=== PATIENT | female | born 1975 | race Caucasian/White ===

== ENCOUNTER 2021-07-21 13:17 | Emergency (ER) | payer BC, SELFPAY ==
[2021-07-21 13:22] VITALS: BP 129/86; PULSE 98; RESP 20; TEMP 36.6; O2SAT 99
--- NOTE | 2021-07-21 14:41 | ED.GENADULT ---
HPI - General Adult General Chief complaint: Unspecified Stated complaint: I think I have strep Time Seen by Provider: 07/21/21 13:39 Source: patient Mode of arrival: ambulatory Limitations: no limitations History of Present Illness HPI narrative: This is a 46 year old female that presents to the ER for cold symptoms x 3 days. Reports cough, congestion, sore throat and ear pain. She is not flu or COVID vaccinated. Denies fever. Related Data Allergies Allergy/AdvReac Type Severity Reaction Status Date / Time codeine Allergy Severe Loss of Verified 07/21/21 13:38 Consciousness diazepam Allergy Mild Unknown Verified 07/21/21 13:38 Sulfa (Sulfonamide Allergy Mild Hives / Verified 07/21/21 13:38 Antibiotics) Red Face adhesive tape Allergy Unknown Rash Verified 07/21/21 13:38 Review of Systems Review of Systems: CONSTITUTIONAL: Denies fever ENT: Reports rhinorrhea, congestion, sore throat, and otalgia. RESPIRATORY: Reports cough. Denies dyspnea. All systems reviewed & are unremarkable except as noted in HPI and below PMFSH Past Medical History Medical History (Updated 07/21/21 @ 14:47 by Mattie Ross PA-C) History of migraine Social History Social History (Updated 07/21/21 @ 14:45 by Mattie Ross PA-C) Smoking status: Current every day smoker Exam Narrative: GENERAL: Well-appearing, well-nourished, and in no acute distress. HEAD: Normocephalic, atraumatic. EYES: EOMI. ENT: Nares clear, no rhinorrhea or epistaxis. Mucous membranes moist. Oropharynx with symmetric tonsillar erythema and hypertrophy, no exudate or other lesions. Uvula midline. No trismus. Bilateral TMs pearly wells non-bulging NECK: Supple. No adenopathy or masses. CHEST: Clear to auscultation. No respiratory distress. No wheezes rales or rhonchi HEART: Regular rate and rhythm. No murmur heard. Normal peripheral pulses. EXTREMITIES: Normal range of motion. No edema. SKIN: Warm, dry, no rash. NEURO: No focal deficits. Alert and oriented x3. PSYCH: Normal mood and affect Course Vital Signs Vital signs: Vital Signs Temperature 97.8 F 07/21/21 13:22 Pulse Rate 98 07/21/21 13:22 Respiratory Rate 20 07/21/21 13:22 Blood Pressure 129/86 07/21/21 13:22 Pulse Oximetry 99 07/21/21 13:22 Temperature 97.8 F 07/21/21 13:22 Pulse Rate 98 07/21/21 13:22 Respiratory Rate 20 07/21/21 13:22 Blood Pressure 129/86 07/21/21 13:22 Pulse Oximetry 99 07/21/21 13:22 Medical Decision Making MDM Narrative Medical decision making narrative: Patient presents to the emergency department for cold symptoms present over the last couple of days. She is afebrile and nontoxic-appearing. Bilateral, symmetric tonsillar hypertrophy noted. Uvula is midline. No trismus. Lungs are clear on exam. Influenza and strep screens are negative. Patient was instructed on continued care of viral infection. SARS-CoV-2 was sent. She is to follow-up with primary care doctor. She was given warnings to return to the ER Vital Signs Vital Signs: Vital Signs Temperature 97.8 F 07/21/21 13:22 Pulse Rate 98 07/21/21 13:22 Respiratory Rate 20 07/21/21 13:22 Blood Pressure 129/86 07/21/21 13:22 Pulse Oximetry 99 07/21/21 13:22 Temperature 97.8 F 07/21/21 13:22 Pulse Rate 98 07/21/21 13:22 Respiratory Rate 20 07/21/21 13:22 Blood Pressure 129/86 07/21/21 13:22 Pulse Oximetry 99 07/21/21 13:22 Lab Data Lab results reviewed: Yes I reviewed the patient's lab results. Labs: Lab Results 07/21/21 Range/Units 13:59 SARS-CoV-2 RNA (RT-PCR) Pending Influenza A Screen Negative Reference Range: Negative Influenza B Screen Negative Reference Range: Negative Strep Screen Presumptive Negative *(Reference Range: Negative)*
[2021-07-23 13:42] LABS: SARS-CoV-2 RNA PCR Negative
== END 2021-07-21 15:29 | disposition home or self-care (01) ==
PROVIDERS: Physician Assistant; Emergency Provider Emergency Medicine
DX: J06.9 Acute upper respiratory infection, unspecified (principal); F17.200 Nicotine dependence, unspecified, uncomplicated; Z20.822 Contact with and (suspected) exposure to COVID-19
CPT/HCPCS: 87081; 87804; 87880; 99283; C9803; U0003; U0005

== ENCOUNTER 2022-04-15 14:24 | Outpatient (CLI) | payer BC, SELFPAY ==
--- NOTE | 2022-04-15 14:30 | ECG_ITS ---
Measurements Intervals [place] Rate: 70 P: 29 W[place]: 157 QRS: -30 QRSD: 97 T: 19 QT: 376 QTc: 408 Interpretive Statements SINUS RHYTHM DELAYED PRECORDIAL R/S TRANSITION LEFT VENTRICULAR HYPERTROPHY MINIMAL Q WAVES- HIGH LATERAL LEADS BASELINE ARTIFACT- I, II, III, AVR, AVL, AVF BORDERLINE ECG NO PREVIOUS ECG AVAILABLE FOR COMPARISON Electronically Signed On 04-15-2022 15:54:53 CDT by Toni Messina D.O.
[2022-04-15 15:11] LABS: Basophils Absolute Auto 0.1 K/mm3 (0.0-0.1); Basophils Percent Auto 1.4 % (0.2-1.2); Eosinophils Absolute Auto 0.3 K/mm3 (0-0.3); Eosinophils Percent Auto 3.6 % (0-4.4); Hematocrit 45.2 % (37.0-47.0); Hemoglobin 14.4 g/dL (12.0-15.0); Immature Granulocyte Absolute 0.03 K/mm3 (0.00-0.031); Immature Granulocyte Percent A 0.3 % (0-0.5); Lymphocytes Absolute Auto 2.51 K/mm3 (0.9-3.2); Lymphocytes Percent Auto 28.9 % (18.3-44.2); Mean Corpuscular HGB Conc 31.9 g/dl (32-36); Mean Corpuscular Hemoglobin 29.9 pg (26-34); Mean Platelet Volume 9.2 fl (7.4-10.4); Monocytes Absolute Auto 0.8 K/mm3 (0.1-0.6); Monocytes Percent Auto 9.5 % (2.6-8.5); Neutrophils Absolute Auto 4.9 K/mm3 (1.3-6.7); Neutrophils Percent Auto 56.3 % (45.5-73.1); Platelet Count Result 405 k/mm3 (150-375); Red Blood Count 4.81 M/mm3 (4.2-5.4); Red Cell Distribution Width 12.9 % (11.5-14.5); White Blood Count 8.7 K/mm3 (4.5-10.0)
== END 2022-04-15 14:25 | disposition home or self-care (01) ==
LOC: ANHSURGERY 14:40
PROVIDERS: PCP Nurse Practitioner; Visit Provider Obstetrics & Gynecology
DX: Z01.818 Encounter for other preprocedural examination (principal); N81.4 Uterovaginal prolapse, unspecified; F17.200 Nicotine dependence, unspecified, uncomplicated
CPT/HCPCS: 36415; 85025; 86850; 86900; 86901; 93005

== ENCOUNTER 2022-04-19 00:44 | Day surgery (SDC) | payer BC, SELFPAY ==
[2022-04-11 14:27] VITALS: BMI 33.8
--- NOTE | 2022-04-11 14:35 | PC.NURSE ---
Report to the Outpatient Waiting Room, entrance under the green pavilion located off [facility], at time ___07:30AM____ on date ___[id number]____. OR Time: ___09:30AM . Time changes happen often and if your time is changed the preop area will call you the afternoon before. - You and your visitor will be asked to self-screen and do not enter if you have any COVID symptoms. - Only one visitor and NO children visitors are allowed at this time. - The patient visitor is requested to leave or wait in car when not with patient due to restrictions. - A mask is required within the hospital. Patients may have clear liquids (water, carbonated beverages, clear teas, apple juice) until 3 hours prior to surgery with a maximum of 20 ounces. - No food from midnight until time of surgery - NOTHING TO DRINK AFTER 06:30AM Take the following medications with a SIP of water the morning of surgery: N/A Medications to discontinue per physician SUPPLEMENTS Date to take last nshb 9-40-59 Please no make-up, nail irish, hairspray, perfume, deodorant, or body powder the day of surgery. No jewelry (including any body piercings) or valuables the day of surgery, leave them at home. Please take a shower or bath the night before, or the morning of, surgery with an antibacterial soap. Wear comfortable, loose fitting clothing. - Jewelry must be removed prior to entering the operating room. Rings and piercings that are not removed may be cut off. - The hospital will not accept responsibility for valuables. - Please leave all valuables, including medications, at home the day of surgery. If you are going home after surgery, a licensed electric truck driver must drive you home. - NO public transportation without another adult. - We recommend that an adult stay with you for 24 hours following discharge. - We also recommend that you do not drive, make important decision, drink alcoholic beverages, or take any drugs that were not prescribed by your health care provider for at least 24 hours after your discharge time. Follow any additional instructions given to you from your surgeon. If you or anyone in your household have experienced Covid symptoms in the past week, please notify your surgeon or the nurse liaison at the phone number below for possible testing. Telephone instructions given to ___PATIENT and asked if any additional questions and then verbalized understanding. Patient advised to call surgeon office or pre surgery nurse liaison [phone] if any additional questions.
--- NOTE | 2022-04-16 14:56 | PM.IMHP ---
H&P: HPI History of Present Illness Date/Time: 04/16/22 14:56 Chief Complaint: Pelvic pain and uterine prolapse Narrative: This is a 46-year-old female who has pain discomfort dysmenorrhea and pain with intercourse. She has a second-degree prolapse and she would like to have it definitively PICC fixed. She has cyclic migraines and would like to have the ovaries out. We did discuss the psychologic and physiologic changes that occur with that and will proceed with hormone replacement as needed. Risks and benefits of this procedure were reviewed including but not exclusive of , aspiration pneumonia, bleeding, transfusion, perforation injury to bowel, bladder, ureters, or other internal organs with the need for open laparotomy. The risk of thromboembolic event was also reviewed. She had all questions answered and asked to proceed PMFSH Past Medical History Medical History History of migraine Social History Social History Smoking packs per day: 1 Smoking cigarettes per day: 20.0 Years smoked: 34 Smoking pack-years: 34.00 Smoking status: Current every day smoker Tobacco type: cigarettes Second hand tobacco smoke exposure: No Alcohol use details: SPECIAL OCCASIONS Substance use: never Substance use type: does not use Spiritual care concerns: No Meds Home Medications and Allergies Home Medications Medication Instructions Recorded Confirmed Type black cohosh 540 mg capsule 1,080 mg PO DAILY 04/11/22 04/11/22 History loratadine 10 mg tablet (Claritin) 10 mg PO DAILY 04/11/22 04/11/22 History red clover leaf extract 500 mg 1,600 mg PO DAILY 04/11/22 04/11/22 History tablet tizanidine 4 mg tablet 8 mg PO BID 04/11/22 04/11/22 History topiramate 50 mg tablet 50 mg PO DAILY 04/11/22 04/11/22 History trazodone 50 mg tablet 50 mg PO HS 04/11/22 04/11/22 History fremanezumab-vfrm 225 mg/1.5 mL 225 mg subcut 04/15/22 History subcutaneous auto-injector (Ajovy) Allergies Allergy/AdvReac Type Severity Reaction Status Date / Time codeine Allergy Severe Loss of Verified 04/11/22 14:18 Consciousness banana Allergy Intermediate Headache Verified 04/11/22 14:20 milk Allergy Intermediate Headache Verified 04/11/22 14:20 diazepam Allergy Mild Hives Verified 04/11/22 14:18 Sulfa (Sulfonamide Allergy Mild Hives / Verified 04/11/22 14:18 Antibiotics) Red Face adhesive tape Allergy Unknown Rash Verified 04/11/22 14:18 BRAXTON PEPPERS Allergy Severe Anaphylaxis Uncoded 04/11/22 14:20 Exam Const: General: cooperative, healthy appearing and comfortable Nutritional Appearance: average body habitus Orientation/consciousness: oriented to person, oriented to place and oriented to time Chest: Chest palpation & inspection: normal inspection of the chest Resp: Effort & Inspection: normal respiratory effort Cardio: Rate: regular rate Rhythm: regular rhythm GI: Inspection: normal to inspection : External Female Exam: normal external appearance Speculum Exam - Vagina: normal appearance of the vagina Speculum Exam - Cervix: normal appearance of the cervix Bimanual exam- vagina & uterus: Cervical tenderness present and enlarged Bimanual Exam- Adnexa, other: normal adnexae Assessment and Plan Assessment and plan (1) Pelvic pain: Code(s): R10.2 - Pelvic and perineal pain Status: Acute (2) Uterine prolapse: Code(s): N81.4 - Uterovaginal prolapse, unspecified Status: Acute Plan Robotic total vaginal hysterectomy and bilateral salpingo-oophorectomy
--- NOTE | 2022-04-18 15:41 | P.PNAN_ITS ---
Anes - Initial Pre Proc Eval Procedure: Operation Date: 04/19/22 09:30 Proposed Procedures p Robotic Assisted Total Vaginal Hysterectomy with Bilateral Salpingo- Oophorectomy - Alonso Bruno MD Date/Time: 04/18/22 15:41 Surgeon: Alonso Bruno MD Pre Op Diagnosis: Pelvic Pain, Uterine Prolapse Patient Data Age: 47 Gender: F Height: 1.57 m Weight: 84 kg Allergies Allergy/AdvReac Type Severity Reaction Status Date / Time codeine Allergy Severe Loss of Verified 04/19/22 08:05 Consciousness banana Allergy Intermediate Headache Verified 04/19/22 08:05 diazepam Allergy Intermediate Hives Verified 04/19/22 08:05 milk Allergy Intermediate Headache Verified 04/19/22 08:05 Sulfa (Sulfonamide Allergy Mild Hives / Verified 04/19/22 08:05 Antibiotics) Red Face adhesive tape Allergy Unknown Rash Verified 04/19/22 08:05 BRAXTON PEPPERS Allergy Severe Anaphylaxis Uncoded 04/19/22 08:05 Home Medications Medication Instructions Recorded Confirmed Type black cohosh 540 mg capsule 1,080 mg PO DAILY 04/11/22 04/19/22 History loratadine 10 mg tablet (Claritin) 10 mg PO DAILY 04/11/22 04/11/22 History red clover leaf extract 500 mg 1,600 mg PO DAILY 04/11/22 04/19/22 History tablet tizanidine 4 mg tablet 8 mg PO BID 04/11/22 04/19/22 History topiramate 50 mg tablet 50 mg PO DAILY 04/11/22 04/19/22 History trazodone 50 mg tablet 50 mg PO HS 04/11/22 04/19/22 History fremanezumab-vfrm 225 mg/1.5 mL 225 mg subcut MONTHLY 04/15/22 04/19/22 History subcutaneous auto-injector (Ajovy) loratadine 10 mg tablet (Claritin) 10 mg PO DAILY 04/19/22 04/19/22 History Patient hx anesthesia problems: none Family hx anesthesia problems: none Results Review: All pre-operative results and documents have been reviewed as part of the pre- operative evaluation. FOR[facility]LY [facility], [facility] Past Medical History Medical History (Updated 04/18/22 @ 15:42 by Mic Rajan MD) Asthma Cervical ca History of migraine Obesity Social History Social History Smoking packs per day: 1 Smoking cigarettes per day: 20.0 Years smoked: 34 Smoking pack-years: 34.00 Smoking status: Current every day smoker Tobacco type: cigarettes Second hand tobacco smoke exposure: No Alcohol use details: SPECIAL OCCASIONS Substance use: never Substance use type: does not use Living arrangements: with family Spiritual care concerns: No Anes - Eval Final PreProcedure Day of Procedure 04/18/22 15:41 Patient weight: obese Heart: regular rate and rhythm Lungs: clear to auscultation and normal air movement Airway: Mallampati scale class II Neurological: alert and oriented Last oral intake: >/= 8 hours ASA classification: III Emergent: no Anesthetic plan: proceed Anesthesia type and monitoring: general GIVS Results Review: All pre-operative results and documents have been reviewed as part of the pre- operative evaluation. Informed Consent: The patient's anesthetic plan and its attendant risks and benefits were discusse d with the patient/family/POA. Questions were solicited and answers provided to the satisfaction of the patient/family/POA.
[2022-04-19] VITALS (10 sets, daily range): BP systolic 109–133; BP diastolic 54–79; PULSE 60–96; RESP 12–18; TEMP 36.4–37.1; O2SAT 95–100
--- NOTE | 2022-04-19 06:23 | WPDHPUPDATE1 ---
History and Physical Update Update Date/Time: 04/19/22 06:23 History and Physical has been reviewed, including an updated exam of the patient. There are NO changes in the patient's condition. Risks, benefits, and alternatives have been discussed and questions answered. Patient agrees to proceed with procedure.
[2022-04-19] MEDS: ACETAMINOPHEN 500 MG TABLET 1000 MG PO (08:11)
[2022-04-19] MEDS: LACTATED RINGERS 1,000 ML 30 ML IV CONT ×2 (08:27→11:04)
[2022-04-19] MEDS: KETOROLAC 15 MG/ML VIAL (*BKC) IV PUSH (08:28)
--- NOTE | 2022-04-19 10:52 | W.PM.PROC2 ---
Procedure Note - Detailed Date of Procedure 04/19/22 Pre-op Diagnosis Pelvic Pain, Uterine Prolapse Post-op Diagnosis Same Procedure Performed robotic total vaginal hysterectomy and bilateral salpingo-oophorectomy Surgeon Alonso Bruno MD Anesthesia General Indications this 47-year-old female with pelvic pain and recurrent migraine headaches Findings normal-appearing uterus and ovaries. rightfallopian tube was surgically absent. Description of Procedure Patient was prepped draped in normal sterile fashion placed in the dorsal lithotomy position. Under excellent general trach anesthesia weighted speculum placed in posterior fornix vagina. Anterior lip grasped with the single-tooth tenaculum. Uterus sounded to 8cm. Serial dilatation with fragmented dilators performed followed by passes of the 8. HAFSA and the 3. 0.5 cold cup. All the weighted speculum was removed and the bladder emptied of clear urine with a 16 Setswana catheter. The instruments were were removed and gloves were changed. A supraumbilical incision made the Veress needle passed in the abdomen. Abdomen filled with CO2 gas to 15mm Hg. The 8mm trocar advanced the abdomen side visualized seen. Patient placed in Trendelenburg and right left lateral quadrant incisions made 8 oz under direct visualization. Right upper quadrant incision in the mm trocars advanced under direct visualization assuring no injury. Robot was docked Attention was turned to the correctional counselor. The left round ligament grasped, burned, cut. Anteriorly a bladder flap was formed by sharply dissect the peritoneum reflecting the bladder caudally from the cervix uterus to the opposite round ligament was clamped, burned, cut. Next the infundibulum pelvic structure on the left was skeletonized to remove the left ovary and tube clamped, burned, cut brought to the level of previously cut round ligament. Room movement removing the right adnexa the infundibulopelvic structure on the right was skeletonized. This was clamped, burned, cut and brought to the level of previously cut round ligament. The cardinal broad ligaments on the left were then serially skeletonized clamping burning cutting attaching closely to the uterus and cervix until the uterine vessels could be seen on the left. These were individually clamped, burned, cut. In like fashion the cardinal broad ligaments on the right were serially skeletonized clamping burning cutting and hugging the cervix and uterus until the uterine vessels could be seen on the right. These were individually clamped, burned, cut. Blanching of the uterus was seen. A colpotomy incision was made in the cervix uterus ovaries and tubes removed through the vagina. The vagina was then closed with continuous running 0V lock from lateral edge to lateral edge back to the midline. Irrigation undertaken to clear and hemostasis assured blood loss estimated 25cc. All sponge, needle, instrument counts were correct. There were no immediate complications Estimated Blood Loss 25 Drains No Packing No Pathology Yes Complications No immediate complications Condition Stable Disposition PACU
[2022-04-19] MEDS: fentaNYL CITRATE INJ (*CRX) 100 MCG/2 ML VIAL 25 MCG IV PUSH ×8 (11:10→11:45)
[2022-04-19] MEDS: HYDROmorphone HCL INJ (*CRX) 1 MG/ML SYR 0.25 MG IV PUSH ×2 (12:00→12:15)
[2022-04-19] MEDS: KETOROLAC 30 MG/ML VIAL (*BKC) IV PUSH (13:57)
[2022-04-19] MEDS: DEXTROSE 5%/LACTATED RINGERS 1,000 ML 125 ML IV CONT (13:58)
--- NOTE | 2022-04-19 14:13 | PC.NURSE ---
1248-This patient, Hanane Owusu, was admitted to OB 2nd Floor Room 279-00. Patient/family oriented to hospital policies and general routines including ID bracelet, bed and alarms, visiting hours, pain management, procedures, bathroom and other care routines, personal items, smoking policy, room service/diet, and visiting hours. Information on how to activate the Rapid Response Team has been discussed. Patient/Family are encouraged to report perceived risks to care and to ask questions if they do not understand what they are told or what they should do.
[2022-04-19] MEDS: DOCUSATE SODIUM 100 MG CAPSULE PO (17:59)
[2022-04-19] MEDS: SIMETHICONE 80 MG TAB.CHEW PO ×2 (18:02→22:14)
[2022-04-19] MEDS: ONDANSETRON INJ 4 MG/2 ML VIAL IV PUSH (22:15)
[2022-04-20] MEDS: IBUPROFEN 600 MG TABLET PO (03:59)
[2022-04-20 04:00] VITALS: BP 115/62; PULSE 81; RESP 16; TEMP 36.9; O2SAT 98
[2022-04-20 04:20] LABS: Basophils Absolute Auto 0.1 K/mm3 (0.0-0.1); Basophils Percent Auto 0.6 % (0.2-1.2); Eosinophils Absolute Auto 0.1 K/mm3 (0-0.3); Eosinophils Percent Auto 0.4 % (0-4.4); Hematocrit 42.3 % (37.0-47.0); Hemoglobin 13.9 g/dL (12.0-15.0); Immature Granulocyte Absolute 0.09 K/mm3 (0.00-0.031); Immature Granulocyte Percent A 0.4 % (0-0.5); Lymphocytes Absolute Auto 1.47 K/mm3 (0.9-3.2); Lymphocytes Percent Auto 6.9 % (18.3-44.2); Mean Corpuscular HGB Conc 32.9 g/dl (32-36); Mean Corpuscular Hemoglobin 30.3 pg (26-34); Mean Corpuscular Volume 92.2 fl (80-100); Mean Platelet Volume 9.4 fl (7.4-10.4); Monocytes Absolute Auto 1.7 K/mm3 (0.1-0.6); Monocytes Percent Auto 7.8 % (2.6-8.5); Neutrophils Absolute Auto 17.8 K/mm3 (1.3-6.7); Neutrophils Percent Auto 83.9 % (45.5-73.1); Platelet Count Result 380 k/mm3 (150-375); Red Blood Count 4.59 M/mm3 (4.2-5.4); Red Cell Distribution Width 12.6 % (11.5-14.5); White Blood Count 21.2 K/mm3 (4.5-10.0)
--- NOTE | 2022-04-20 05:36 | P.DS_ITS ---
DS: Admitting Diagnosis Discharge Date 04/20/2022 Admitting Diagnosis enlarged uterus/pelvic pain/ bleeding refractory to medical therapy DS: Discharge Diagnosis Discharge Diagnosis (1) Obesity: Code(s): E66.9 - Obesity, unspecified Status: Acute (2) Uterine prolapse: Code(s): N81.4 - Uterovaginal prolapse, unspecified Status: Acute (3) Pelvic pain: Code(s): R10.2 - Pelvic and perineal pain Status: Acute DS: Summary Hospital Course Reason for hospitalization: patient was admitted for robotic hysterectomy and bilateral salpingo- oophorectomy Hospital Course: patient underwent robotic total vaginal hysterectomy and bilateral salpingo- oophorectomy. Her hospital course was unremarkable. She remained afebrile. She was up, voiding without difficulty, ambulating, generally without complaints. Time Spent with Patient Time attestation: Total time spent providing and/or coordinating discharge services: Exam Const: General: cooperative, healthy appearing and comfortable HENMT: Head: normal to inspection Resp: Effort & Inspection: normal respiratory effort GI: Inspection: normal to inspection and incision ( Bones were clean dry and intact) DS: Data Data Completed and Pending Pending studies at discharge: Pending at discharge 04/19/22 10:30 Surgical [PTH] Routine Labs on day of discharge: Labs from last 24 hours 04/20/22 03:57 WBC 21.2 H RBC 4.59 Hgb 13.9 Hct 42.3 MCV 92.2 MCH 30.3 MCHC 32.9 RDW 12.6 Plt Count 380 H MPV 9.4 Immature Gran % (Auto) 0.4 Neut % (Auto) 83.9 H Lymph % (Auto) 6.9 L Bollinger % (Auto) 7.8 Eos % (Auto) 0.4 Baso % (Auto) 0.6 Lymph # (Auto) 1.47 [place] # (Auto) 1.7 H Eos # (Auto) 0.1 Baso # (Auto) 0.1 Abs Immat Gran (auto) 0.09 H Absolute Neuts (auto) 17.8 H Absolute Nucleated RBC 0.0 Nucleated RBC % 0.0 Discharge Plan Discharge Patient Disposition: Home, Self-Care Stand Alone Forms: General Discharge Instructions Follow-up/Referrals: Alonso Rosas MD [Physician] - Discharge Medications: New meperidine 50 mg tablet 50 mg PO Q6H PRN (Reason: pain) Qty: 20 0RF No Action trazodone 50 mg tablet 50 mg PO HS tizanidine 4 mg tablet 8 mg PO BID black cohosh 540 mg Capsule 1,080 mg PO DAILY Rx Instructions: HOT FLASHES red clover leaf extract 500 mg Tablet 1,600 mg PO DAILY topiramate 50 mg tablet 50 mg PO DAILY loratadine [Claritin] 10 mg Tablet 10 mg PO DAILY Ajovy Autoinjector 225 mg/1.5 mL auto-injector 225 mg SUBCUT MONTHLY Rx Instructions: TAKING 04/15/22 migraine preventative loratadine [Claritin] 10 mg Tablet 10 mg PO DAILY
[2022-04-20] MEDS: DOCUSATE SODIUM 100 MG CAPSULE PO (06:35)
[2022-04-20] MEDS: ENOXAPARIN 40 MG/0.4 ML SYRINGE SUB-Q (06:35)
[2022-04-20 06:45] VITALS: BP 127/85; PULSE 96; RESP 16; TEMP 36.6
== END 2022-04-20 06:53 | disposition home or self-care (01) ==
LOC: ANHSURGERY 07:37 → ANHOB2 12:47
PROVIDERS: PCP Nurse Practitioner; Visit Provider Obstetrics & Gynecology
PROC: (CPT 58552; principal; 2022-04-19 09:30)
DX: N81.4 Uterovaginal prolapse, unspecified (principal); R10.2 Pelvic and perineal pain; D25.9 Leiomyoma of uterus, unspecified; N83.292 Other ovarian cyst, left side; N83.291 Other ovarian cyst, right side; Z85.41 Personal history of malignant neoplasm of cervix uteri; F17.210 Nicotine dependence, cigarettes, uncomplicated; E66.9 Obesity, unspecified; Z68.34 Body mass index [BMI] 34.0-34.9, adult
CPT/HCPCS: 58552; S2900; 36415; 85025; 88307; 99199; A9270; J1100; J1170; J1650; J1885; J2405; J2704; J2710; J3010; J7030; J7120; J7121

== ENCOUNTER 2022-05-05 17:48 | Emergency (ER) | payer BC, SELFPAY ==
[2022-05-05 18:35] VITALS: BP 128/85; PULSE 74; RESP 18; TEMP 36.3; O2SAT 99
[2022-05-05 18:51] LABS: Basophils Absolute Auto 0.2 K/mm3 (0.0-0.1); Basophils Percent Auto 1.8 % (0.2-1.2); Eosinophils Absolute Auto 0.6 K/mm3 (0-0.3); Eosinophils Percent Auto 6.5 % (0-4.4); Hematocrit 45.6 % (37.0-47.0); Hemoglobin 14.9 g/dL (12.0-15.0); Immature Granulocyte Absolute 0.04 K/mm3 (0.00-0.031); Immature Granulocyte Percent A 0.4 % (0-0.5); Lymphocytes Absolute Auto 3.23 K/mm3 (0.9-3.2); Lymphocytes Percent Auto 33.1 % (18.3-44.2); Mean Corpuscular HGB Conc 32.7 g/dl (32-36); Mean Corpuscular Hemoglobin 29.9 pg (26-34); Mean Corpuscular Volume 91.6 fl (80-100); Monocytes Absolute Auto 0.9 K/mm3 (0.1-0.6); Monocytes Percent Auto 9.4 % (2.6-8.5); Neutrophils Absolute Auto 4.8 K/mm3 (1.3-6.7); Neutrophils Percent Auto 48.8 % (45.5-73.1); Platelet Count Result 475 k/mm3 (150-375); Red Blood Count 4.98 M/mm3 (4.2-5.4); Red Cell Distribution Width 12.3 % (11.5-14.5); White Blood Count 9.8 K/mm3 (4.5-10.0)
[2022-05-05 19:01] LABS: Alanine Aminotransferase 21 U/L (6-35); Albumin Level 4.4 g/dL (3.5-5.1); Alkaline Phosphatase 93 U/L (38-126); Anion Gap 7 mmol/L (8-16); Aspartate Amino Transferase 21 U/L (14-36); Bilirubin,Total 0.4 mg/dL (0.2-1.3); Blood Urea Nitrogen 10 mg/dL (7-17); Calcium 9.3 mg/dL (8.4-10.2); Carbon Dioxide 28 mmol/L (22-30); Chloride 103 mmol/L (98-107); Estimated CRCL calculation 77 ml/min; Estimated Glomerular Filt Rate > 60; Glucose 100 mg/dL (65-110); Potassium 4.1 mmol/L (3.4-5.0); Sodium 138 mmol/L (137-145)
[2022-05-05 20:37] LABS: Add Urine Microscopic? YES; Appearance Urine Cloudy (Clear); Bilirubin Urine Negative (Negative); Blood Urine 3+ (Negative); Color Urine Yellow (Yellow); Glucose Urine UA Negative (Negative); Ketones Urine Negative (Negative); Leukocyte Esterase Ur Trace LEU/UL (Negative); Mucus Urine Rare /lpf; Nitrate Urine Negative (Negative); Protein Urine Negative (Negative); Specific Grav Ur 1.015 (1.001-1.035); Squamous Epithelial Cell Urine Moderate /hpf (Few); Urobilinogen Urine Negative mg/dL (<2.0)
== END 2022-05-05 22:54 | disposition left against medical advice (07) ==
PROVIDERS: Emergency Provider Emergency Medicine; PCP Nurse Practitioner
DX: N93.9 Abnormal uterine and vaginal bleeding, unspecified (principal)
CPT/HCPCS: 36415; 80053; 81001; 85025; 86850; 86900; 86901; 87086; 87088; 99199

== ENCOUNTER 2022-10-12 19:16 | Emergency (ER) | payer BC, SELFPAY ==
--- NOTE | ~2022-10-12 | XR_ITS ---
XR hand RT min 3V DATE: 10/12/2022 21:32 INDICATION: Right first digit pain. No injury. TECHNIQUE: 3 views COMPARISON: None FINDINGS: No fracture or dislocation, periosteal reaction or bone destruction. There is mild degenera tive change at the triscaphe joint and first carpometacarpal joint. IMPRESSION: Mild osteoarthritis Reviewed, dictated and finalized at location A. IMPRESSION: Mild osteoarthritis
[2022-10-12 19:22] VITALS: BP 136/96; PULSE 97; RESP 16; TEMP 36.6; O2SAT 99
[2022-10-12 21:00] VITALS: BP 133/86; PULSE 85; RESP 14; TEMP 37; O2SAT 98
--- NOTE | 2022-10-12 21:36 | ED.UPPEXIN ---
HPI - Extremity Injury (Upper) General Chief Complaint: Extremity Injury, Upper Stated Complaint: right thumb pain Time Seen by Provider: 10/12/22 20:43 History of Present Illness HPI narrative: This is a 47-year-old female with no significant past medical history, presents to the emergency department complaining of right thumb pain. She describes the pain as 6/10, sharp without significant radiation. She denies any known trauma. Related Data Home Medications Medication Instructions Recorded Confirmed black cohosh 540 mg capsule 1,080 mg PO DAILY 04/11/22 04/19/22 loratadine 10 mg tablet (Claritin) 10 mg PO DAILY 04/11/22 04/11/22 red clover leaf extract 500 mg 1,600 mg PO DAILY 04/11/22 04/19/22 tablet tizanidine 4 mg tablet 8 mg PO BID 04/11/22 04/19/22 topiramate 50 mg tablet 50 mg PO DAILY 04/11/22 04/19/22 trazodone 50 mg tablet 50 mg PO HS 04/11/22 04/19/22 fremanezumab-vfrm 225 mg/1.5 mL 225 mg subcut MONTHLY 04/15/22 04/19/22 subcutaneous auto-injector (Ajovy) loratadine 10 mg tablet (Claritin) 10 mg PO DAILY 04/19/22 04/19/22 Allergies Allergy/AdvReac Type Severity Reaction Status Date / Time codeine Allergy Severe Loss of Verified 10/12/22 22:12 Consciousness banana Allergy Intermediate Headache Verified 10/12/22 22:12 diazepam Allergy Intermediate Hives Verified 10/12/22 22:12 milk Allergy Intermediate Headache Verified 10/12/22 22:12 Sulfa (Sulfonamide Allergy Mild Hives / Verified 10/12/22 22:12 Antibiotics) Red Face adhesive tape Allergy Unknown Rash Verified 10/12/22 22:12 BRAXTON PEPPERS Allergy Severe Anaphylaxis Uncoded 10/12/22 22:12 Review of Systems Review of Systems: CONSTITUTIONAL: Denies fever, chills, or sweats. ENT: Denies rhinorrhea, congestion, sore throat, or otalgia. CARDIOVASCULAR: Denies chest pain, palpitations, or edema. RESPIRATORY: Denies cough or dyspnea. GASTROINTESTINAL: Denies abdominal pain, nausea, vomiting, or diarrhea. GENITOURINARY: Denies dysuria or hematuria. SKIN: Denies rash or itching. MUSCULOSKELETAL: Right thumb pain denies back pain, or myalgia. NEUROLOGIC: Denies headache, numbness, dizziness, or weakness. PSYCHIATRIC: Denies anxiety or depression. [facility] Past Medical History Medical History Asthma Cervical ca History of migraine Obesity Social History Social History Smoking packs per day: 1 Smoking cigarettes per day: 20.0 Years smoked: 34 Smoking pack-years: 34.00 Smoking status: Current every day smoker Tobacco type: cigarettes Second hand tobacco smoke exposure: No Alcohol use details: SPECIAL OCCASIONS Substance use: never Substance use type: does not use Living arrangements: with family Spiritual care concerns: No Exam Narrative: GENERAL: Well-developed, well-nourished, and in no acute distress. HEAD: Normocephalic, atraumatic. EYES: PERRLA and EOMI. CHEST: Clear to auscultation. No respiratory distress. No wheezes rales or rhonchi HEART: Regular rate and rhythm. No murmur heard. Normal peripheral pulses. ABDOMEN: Soft, nontender, nondistended, normal active bowel sounds. EXTREMITIES: Tender palpation at the base of the right thumb. Range of motion of the thumb is normal. Normal range of motion. No edema. SKIN: Warm, dry, no rash. NEURO: No focal deficits. Alert and oriented x3. PSYCH: Normal mood and affect. Course Course Emergency Course: 22:20 - Xray not concerning for fracture or dislocation. I suspect a strain. The patient was offered a thumb spica splint for comfort, but politely declines stating she will buy one over the counter. Will discharge with primary care follow up. Discussed return and emergency precautions including signs/symptoms of neurovascular compromise and infection. The patient voiced understanding and is comfortable with the plan. Vital Signs Vital signs: Vital Signs
[2022-10-12] MEDS: ACETAMINOPHEN 500 MG TABLET 1000 MG PO (22:06)
== END 2022-10-12 22:51 | disposition home or self-care (01) ==
PROVIDERS: Emergency Provider Preventive Medicine Aerospace Medicine; PCP Nurse Practitioner
DX: M79.644 Pain in right finger(s) (principal); S63.602A Unspecified sprain of left thumb, initial encounter; T14.90XA Injury, unspecified, initial encounter; E66.9 Obesity, unspecified; Z68.35 Body mass index [BMI] 35.0-35.9, adult; Z85.41 Personal history of malignant neoplasm of cervix uteri; F17.210 Nicotine dependence, cigarettes, uncomplicated
CPT/HCPCS: 73130; 99283; A9270

== ENCOUNTER 2023-07-14 20:36 | Emergency (ER) | payer BC, SELFPAY ==
[2023-07-14] VITALS (9 sets, daily range): BP systolic 123–151; BP diastolic 67–93; PULSE 86–92; RESP 16–18; TEMP 36.5; O2SAT 96–100
--- NOTE | ~2023-07-14 | CT_ITS ---
EXAMINATION: CT thoracic lumbar wo con DATE: 07/14/2023 21:24 INDICATION: Back pain after recent fall TECHNIQUE: Computed tomography (CT) of the thoracic and lumbar spine was performed without intravenou s contrast. The dose-length product was 2032.43 mGy-cm. Automated exposure control and iterative rod nstruction technique were employed. COMPARISON: None FINDINGS: Thoracic spine: Mild thoracic spondylosis. Vertebral body heights are maintained. No acute fracture o r traumatic subluxation. Normal thoracic kyphosis. There are calyceal stones in the upper pole of the right kidney. There is mild paraseptal emphysema of the lungs. Dependent atelectasis. Lumbar spine: There is disc narrowing at L5-S1. There is grade 1 spondylolisthesis at L5-S1. Vertebra l body heights are maintained. Mild levocurvature of the lumbar spine. No paraspinal soft tissue abno rmality. IMPRESSION: 1. No acute abnormality of the thoracic or lumbar spine. Reviewed, dictated and finalized at location A. [employer]
--- NOTE | 2023-07-14 20:46 | ED.BACK ---
HPI - Back Pain/Injury General Chief Complaint: Back Pain/Injury Stated Complaint: back pain Time Seen by Provider: 07/14/23 20:44 Source: patient Mode of arrival: ambulatory Limitations: no limitations History of Present Illness HPI Narrative: Patient is a 48 y/o female who presents to the ED with c/o back pain. Patient reports she tripped over a shopping cart at [employer] on Friday and hit her back against the cart. She c/o pain from her mid back down to her lower back. Patient is Rx'd muscle relaxers for her migraines and has been taking these with [employer] [facility] today w/o relief. Pain worse with movement. She denies any numbness, tingling, bowel or bladder incontinence, fevers. No abdominal pain. Related Data Home Medications Medication Instructions Recorded Confirmed black cohosh 540 mg capsule 1,080 mg PO DAILY 04/11/22 04/19/22 loratadine 10 mg tablet (Claritin) 10 mg PO DAILY 04/11/22 04/11/22 red clover leaf extract 500 mg 1,600 mg PO DAILY 04/11/22 04/19/22 tablet tizanidine 4 mg tablet 8 mg PO BID 04/11/22 04/19/22 topiramate 50 mg tablet 50 mg PO DAILY 04/11/22 04/19/22 trazodone 50 mg tablet 50 mg PO HS 04/11/22 04/19/22 fremanezumab-vfrm 225 mg/1.5 mL 225 mg subcut MONTHLY 04/15/22 04/19/22 subcutaneous auto-injector (Ajovy) loratadine 10 mg tablet (Claritin) 10 mg PO DAILY 04/19/22 04/19/22 Allergies Allergy/AdvReac Type Severity Reaction Status Date / Time codeine Allergy Severe Loss of Verified 07/14/23 20:40 Consciousness banana Allergy Intermediate Headache Verified 07/14/23 20:40 diazepam Allergy Intermediate Hives Verified 07/14/23 20:40 milk Allergy Intermediate Headache Verified 07/14/23 20:40 Sulfa (Sulfonamide Allergy Mild Hives / Verified 07/14/23 20:40 Antibiotics) Red Face adhesive tape Allergy Unknown Rash Verified 07/14/23 20:40 BRAXTON PEPPERS Allergy Severe Anaphylaxis Uncoded 07/14/23 20:40 Review of Systems Review of Systems: CONSTITUTIONAL: Denies fever, chills, or sweats. MUSCULOSKELETAL: See HPI. NEUROLOGIC: Denies headache, dizziness, numbness, or weakness. All systems reviewed & are unremarkable except as noted in HPI and below [facility] Past Medical History Medical History Asthma Cervical ca History of migraine Obesity Social History Social History Smoking packs per day: 1 Smoking cigarettes per day: 20.0 Years smoked: 34 Smoking pack-years: 34.00 Smoking status: Current every day smoker Tobacco type: cigarettes Second hand tobacco smoke exposure: No Alcohol use details: SPECIAL OCCASIONS Substance use: never Substance use type: does not use Living arrangements: with family Spiritual care concerns: No Exam Narrative: GENERAL: Well appearing, obese with BMI of 39.5, non-toxic, in no acute distress. HEAD: Normocephalic, atraumatic. RESPIRATORY: Airway patent, respirations nonlabored. Clear to auscultation bilaterally, no rales, rhonchi, wheezing. CARDIOVASCULAR: Regular rate and rhythm without murmurs, rubs, or gallops MUSCULOSKELETAL: Moves all extremities. No gross deformities. mild tenderness throughout lower thoracic midline spine, extending into upper lumbar region. No palpable deformities or bony step-offs. Tenderness to palpation throughout right sided lumbosacral paraspinal musculature. Sensation intact. SKIN: Warm, dry, normal color. NEURO: A&O X3. Speech clear. Cranial nerves II-XII grossly intact. Steady gait. No ataxic movements. PSYCHIATRIC: Appropriate mood and affect. Normal interaction. Course Vital Signs Vital signs: Vital Signs Temperature 97.7 F 07/14/23 20:37 Pulse Rate 86 07/14/23 20:37 Respiratory Rate 16 07/14/23 20:37 Pulse Oximetry 100 07/14/23 20:37 Oxygen Delivery Room Air 07/14/23 20:37 Temperature 97.7 F 07/14/23 20:37 Pulse Rate 92
[2023-07-14] MEDS: traMADol HCL (*CRX) 25 MG TABLET PO (21:08)
[2023-07-14] MEDS: methylPREDNISolone SOD SUCC 125 MG VIAL IM (21:08)
[2023-07-14] MEDS: ACETAMINOPHEN 500 MG TABLET 1000 MG PO (21:08)
[2023-07-14] MEDS: CYCLOBENZAPRINE HCL 5 MG TABLET PO (21:09)
== END 2023-07-14 22:35 | disposition home or self-care (01) ==
PROVIDERS: Emergency Provider Physician Assistant; PCP Nurse Practitioner
DX: S29.012A Strain of muscle and tendon of back wall of thorax, initial encounter (principal); S39.012A Strain of muscle, fascia and tendon of lower back, initial encounter; J45.909 Unspecified asthma, uncomplicated; F17.210 Nicotine dependence, cigarettes, uncomplicated; Z85.41 Personal history of malignant neoplasm of cervix uteri; W01.198A Fall on same level from slipping, tripping and stumbling with subsequent striking against other object, initial encounter; Y92.512 Supermarket, store or market as the place of occurrence of the external cause
CPT/HCPCS: 72128; 72131; 96372; 99284; A9270; J2930

== ENCOUNTER 2025-05-19 17:35 | Emergency (ER) | payer BC, SELFPAY ==
--- OUTSIDE RECORDS SUMMARY | 2025-05-19 17:38 | XMS_ITS | Clinical Summary ---
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 Rate: 64 P: 31 NC: 170 QRS: -9 QRSD: 101 T: 44 QT: 400 QTc: 414 Interpretive Statements SINUS RHYTHM Procedure Note Ashwini Falcon MD - 03/15/[address] [address] Test Date: 2025-03-11 Pat Name: HANANE DAVID Department: 177 Room: Gender: Female Dock Attendant: harley : 1975 Requested By: ASHWINI FALCON Order Number: [id number] Reading MD: Ashwini Falcon Measurements Intervals [place] Rate: 64 P: 31 NC: 170 QRS: -9 QRSD: 101 T: 44 QT: 400 QTc: 414 Interpretive Statements SINUS RHYTHM Ashwini Falcon MD PROCEDURES-ORDERABLE NO COURTNEY RGE Final Result [facility]ARDI[facility] * MG DIAG W OLESYA LT DIGI (08/20/2024 1:17 PM TEAM ASSISTANT) Anatomical Region Laterality Modality Breast Left Mammography 08/20/2024 1:27 PM TEAM ASSISTANT Impressions 08/20/2024 1:29 PM TEAM ASSISTANT IMPRESSION: Effacing superimposed glandular tissue. No mammographic evidence of malignancy. RECOMMENDATION: Routine ScreeningBilateral Findings, impression, and recommendation were discussed with the patient immediately following exam completion. OVERALL IMAGING ASSESSMENT: ACR BI-RADS 2 - BENIGN FINDING(S). Ordered By: ALTAF VASQUEZ Interpreted By: Kem Bell, 08/20/2024 1:27 PM Narrative 08/20/2024 1:29 PM TEAM ASSISTANT [facility] [address] [place] [address] EXAMINATION: MG DIAG W OLESYA LT DIGI INDICATIONS: Abnormal mammogram TECHNIQUE: Digital full field true lateral and spot compression MLO views of the left breast to include 3-D Tomosynthesis technique. This study was read with the assistance of a computer-aided detection system. HISTORY: Patient presents for diagnostic evaluation of indeterminate 1 view asymmetry on screening mammography without breast complaint. COMPARISON: 08/17/2024, 03/13/2022, and 04/09/2018 TISSUE DENSITY: The breasts are heterogeneously dense, which may obscure small masses. FINDINGS: Superimposed fibroglandular tissue at the lower slightly inner left breast effaces with spot compression. Long-standing stable appearance underlying fibroglandular tissue without mass, developing asymmetry, or architectural distortion. Few scattered typically benign round calcifications. No suspicious microcalcification. No axillary adenopathy. Altaf RUST MAMMO Final Result from Last 3 Months or Most Recently Relevant to Health Maintenance Insurance [facility] Care Teams Underwriting Specialist Relationship Specialty Start Date End Date Altaf Vasquez APNP [address] [place] [address] PCP - General NURSE PRACTITIONER 07/30/17
--- OUTSIDE RECORDS SUMMARY | 2025-05-19 17:39 | XMS_ITS | Encounter Summary ---
Author Organization [facility] Address [address] [place] [address] Care Team Providers Care Snowboarding Instructor Name Role Phone Bethany Vasquez Primary Care Provider [phone] Encounter Details Date Type Department Care Team (Late st Contact Info) Description 04/27/2025 Kaonetics Technologiest Message Enc [facility] Medical Group Family and Sports Medicine - [place] [address] [place] [address] Bethany Vasquez APNP [address] [place] [address] MRI insurance question Social History Tobacco Use Types Packs/Day Years Used Date Smoking Tobacco: Every Day Cigarettes 1 35 Smokeless Tobacco: Never Alcohol Use Standard Drinks/Week Comments Yes 0 (1 standard drink = 0.6 oz pure alcohol) On occasion not on aregular basis PHQ-2 Answer Date Recorded Patient Health Questionnaire-2 Score 5 12/16/2024 Comments No Sex and Gender Information Value Date Recorded Sex Assigned at Female 07/27/2024 9:39 AM STRAP STITCHER Legal Sex Female 4:49 PM CDT Gender Identity Female 07/27/2024 9:39 AM STRAP STITCHER Sexual Orientation Straight 10/07/2024 1: 56 PM CDT documented as of this encounter Plan of Treatment Upcoming Encounters Date Type Department Care Team (Late st Contact Info) Description 06/15/2025 2:30 PM STRAP STITCHER Treatment [facility] at [facility], [address] [address] Bethany Vasquez APNP [address] [place] [address] 09/08/2025 2:30 PM STRAP STITCHER Treatment [facility] at [facility], [place] [address] [place] [address] Bethany Vasquez APNP [address] [place] [address] documented as of this encounter Visit Diagnoses Not on filedocumented in this encounter Additional Health Concerns Assessment Noted Time PHQ-9 Depression Total Score: 20 025 3:26 PM CDT documented as of this encounter Care Teams Snowboarding Instructor Relationship Specialty Start Date End Date Bethany Vasquez APNP [address] [place] [address] PCP - General NURSE PRACTITIONER 07/30/17 documented as of this encounter
--- OUTSIDE RECORDS SUMMARY | 2025-05-19 17:40 | XMS_ITS | Encounter Summary ---
Author Organization [facility] Address [address] [place] [address] Care Team Providers Care Business Process Expert Name Role Phone Bethany Vasquez Primary Care Provider [phone] Encounter Details Date Type Department Care Team (Late st Contact Info) Description 03/25/2025 MyCStukentt Message Enc [facility] Medical Group Family and Sports Medicine - [place] [address] [place] [address] Bethany Vasquez APNP [address] [place] [address] Migraine Social History Tobacco Use Types Packs/Day Years [...] Sex Assigned at Female 07/27/2024 9:39 AM PREPARATION ROOM WORKER Legal Sex Female 4:49 PM CDT Gender Identity Female 07/27/2024 9:39 AM PREPARATION ROOM WORKER Sexual Orientation Straight 10/07/2024 1: 56 PM CDT documented as of this encounter Plan of Treatment Upcoming Encounters Date Type Department Care Team (Late st Contact Info) Description 06/15/2025 2:30 PM PREPARATION ROOM WORKER Treatment [facility] at [facility], [address] [address] Bethany Vasquez APNP [address] [place] [address] 09/08/2025 2:30 PM PREPARATION ROOM WORKER Treatment [facility]fusion Services at [facility], [address] [address] Bethany Vasquez APNP [address] [place] [address] documented as of this encounter Visit Diagnoses Not on filedocumented in this encounter Additional Health Concerns Assessment Noted Time PHQ-9 Depression Total Score: 20 025 3:26 PM CDT documented as of this encounter Care Teams Business Process Expert Relationship Specialty Start Date End Date Bethany Vasquez APNP [address] [place] [address] PCP - General NURSE PRACTITIONER 07/30/17 documented as of this encounter
--- OUTSIDE RECORDS SUMMARY | 2025-05-19 17:41 | XMS_ITS | Encounter Summary ---
Author Organization [facility] Address [address] [place] [address] Care Team Providers Care Inventory Analyst Name Role Phone Bethany Vasquez Primary Care Provider [phone] Encounter Details Date Type Department Care Team (Late st Contact Info) Description 12/26/2018 Abstract [facility] CONVERSION [address] [place] [address] , Generic Conversion, Social History Tobacco Use Types Packs/Day Years Used Date Smoking Tobacco: Never Assessed Comments Unknown Sex and Gender Information Value Date Recorded Sex Assigned at Female 07/27/2024 9:39 AM RESEARCH & ANALYTICS MANAGER Legal Sex Female 4:49 PM CDT Gender Identity Female 07/27/2024 9:39 AM RESEARCH & ANALYTICS MANAGER Sexual Orientation Straight 10/07/2024 1: 56 PM CDT documented as of this encounter Plan of Treatment Upcoming Encounters Date Type Department Care Team (Late Contact Info) Description 06/15/2025 2:30 PM RESEARCH & ANALYTICS MANAGER Treatment [facility] at [address] [address] Bethany Vasquez APNP [address] [place] [address] 09/08/2025 2:30 PM RESEARCH & ANALYTICS MANAGER [facility], [address] [address] Bethany Vasquez APNP [address] [place] [address] documented as of this encounter Visit Diagnoses Not on filedocumented in this encounter Care Teams Inventory Analyst Relationship Specialty Start Date End Date Bethany Vasquez APNP [address] [place] [address] PCP - General NURSE PRACTITIONER 07/30/17 documented as of this encounter
--- OUTSIDE RECORDS SUMMARY | 2025-05-19 17:45 | XMS_ITS | Encounter Summary ---
Author Organization [facility] Address [address] [place] [address] Care Team Providers Care Internal Revenue Service Agent Name Role Phone Bethany Vasquez Primary Care Provider [phone] Encounter Details Date Type Department Care Team (Late st Contact Info) Description 10/11/2024 MyCNext Generation Dancet Message Enc [facility] Medical Group Family and Sports Medicine - [place] [address] [place] [address] Bethany Vasquez APNP [address] [place] [address] Hemeroid ? Social History Tobacco Use Types Packs/Day Years Used Date Smoking Tobacco: Every Day Cigarettes 1 35 Smokeless Tobacco: Never Alcohol Use Standard Drinks/Week Comments Yes 0 (1 standard drink = 0.6 oz pure alcohol) On occasion not on aregular basis PHQ-2 Answer Date Recorded Patient Health Questionnaire-2 Score 0 10/07/2024 Comments No Sex and Gender Information Value Date Recorded Sex Assigned at Female 07/27/2024 9:39 AM BUDGET TECHNICIAN Legal Sex Female 4:49 PM CDT Gender Identity Female 07/27/2024 9:39 AM BUDGET TECHNICIAN Sexual Orientation Straight 10/07/2024 1: 56 PM CDT documented as of this encounter Plan of Treatment Upcoming Encounters Date Type Department Care Team (Late st Contact Info) Description 06/15/2025 2:30 PM BUDGET TECHNICIAN Treatment [facility] at [facility], [address] [address] Bethany Vasquez APNP [address] [place] [address] 09/08/2025 2:30 PM BUDGET TECHNICIAN Treatment [facility] at [facility], [address] [address] Bethany Vasquez APNP [address] [place] [address] documented as of this encounter Visit Diagnoses Not on filedocumented in this encounter Additional Health Concerns Assessment Noted Time PHQ-9 Depression Total Score: 14 023 4:10 PM BUDGET TECHNICIAN documented as of this encounter Care Teams Internal Revenue Service Agent Relationship Specialty Start Date End Date Bethany Vasquez APNP [address] [place] [address] PCP - General NURSE PRACTITIONER 07/30/17 documented as of this encounter
--- OUTSIDE RECORDS SUMMARY | 2025-05-19 17:46 | XMS_ITS | Encounter Summary ---
Author Organization [facility] Address [address] [place] [address] Care Team Providers Care Candy Attendant Name Role Phone Bethany Vasquez Primary Care Provider + Encounter Details Date Type Department Care Team (Late st Contact Info) Description 10/07/2024 Fresh Interactive Technologiest Message Enc [facility] Medical Group Family and Sports Medicine - [place] [address] [place] [address] Bethany Vasquez APNP [address] [place] [address] Anxiety Social History Tobacco Use Types Packs/Day Years [...] Sex Assigned at Female 07/27/2024 9:39 AM HEALTH BENEFITS SPECIALIST Legal Sex Female 4:49 PM CDT Gender Identity Female 07/27/2024 9:39 AM HEALTH BENEFITS SPECIALIST Sexual Orientation Straight 10/07/2024 1: 56 PM CDT documented as of this encounter Functional Status * Over the past 2 weeks, how often have you been bothered by any of the following problems? Question Answer Date of Assessment Author Status Little interest or pleasure in doing things Not at all 10/07/2024 1:56 PM CDT Jess Jensen MA Acti ve Feeling down, depressed, or hopeless Not at all 10/07/2024 1:56 PM CDT Jess Jensen MA Active Patient Health Questionnaire-2 Score 0 10/07/2024 1:56 PM CDT Jess Jensen M A Active documented as of this encounter Plan of Treatment Upcoming Encounters Date Type Department Care Team (Late st Contact Info) Description 06/15/2025 2:30 PM HEALTH BENEFITS SPECIALIST Treatment [facility]fusion Services at [facility], [facility] [address] [place] [address] Bethany Vasquez APNP [address] [place] [address] 09/08/2025 2:30 PM HEALTH BENEFITS SPECIALIST Treatment [facility]fusion Services at [facility], [facility] [address] [place] [address] Bethany Vasquez APNP [address] [place] [address] documented as of this encounter Visit Diagnoses Not on filedocumented in this encounter Additional Health Concerns Assessment Noted Time PHQ-9 Depression Total Score: 14 023 4:10 PM HEALTH BENEFITS SPECIALIST documented as of this encounter Care Teams Candy Attendant Relationship Specialty Start Date End Date Bethany Vasquez APNP [address] [place] [address] PCP - General NURSE PRACTITIONER 07/30/17 documented as of this encounter
--- OUTSIDE RECORDS SUMMARY | 2025-05-19 17:46 | XMS_ITS | Clinical Summary ---
Author Organization [facility] Address [address] [place] [address] Care Team Providers Care Grocery Clerk Checking Name Role Phone Bethany Vasquez NP Primary Care Provider [phone] Allergies Active Allergy Reactions Criticality Noted Date Comments Adhesive Rash Medium 02/09/2014 Banana Headache Low 02/14/2016 Codeine Anaphylaxis,Rash,Unk n own High 09/16/2013 Anaphylaxis Made patient unconscious. Had to use an epi pen to arouse per patient Diazepam Rash,Unknown High 07/30/2017 Lactose Headache Low 02/14/2016 Can Have 1/4 Milk Daily Can Have 1/4 Milk Daily Other Itching,Rash Medium 12/18/2014 Maldonado Peppers Maldonado Peppers Sulfa (Sulfonamide Antibiotics) Hives,Unknown High 09/16/2013 Hives Medications Aimovig Autoinjector 70 mg/mL auto-injector subcutaneous injection 06/30/2021 Active ubrogepant (UBRELVY) 50 mg tablet Take 50 mg by mouth 2 (two) times a day as needed 09/15/2020 Active Active Problems Problem Noted Date Diagnosed Date Lesion of right lower eyelid 07/06/2021 Assessment & Plan (07/06/2021 2:54 PM GRAPHICS COORDINATOR): Risks, benefits and alternatives were discussed. Risks included but were not limited to pain, bleeding, scarring, recurrence, and possible need for additional procedures. Following this discussion, the patient wishes to proceed with right lower eyelid lesion excision. This was performed today without any complications. They will follow-up as needed. Social History Tobacco Use Types Packs/Day Years Used Date Smoking Tobacco: Every Day Smokeless Tobacco: Never Personal Safety Answer Date Recorded Getting School Help Needed Not on file 02/06 Comments Unknown Sex and Gender Information Value Date Recorded Sex Assigned at Not on file Legal Sex Female 7:12 PM GRAPHICS COORDINATOR Gender Identity Not on file Sexual Orientation Not on file Obstetrics History Last Filed Vital Signs Vital Sign Reading Time Taken Comments Blood Pressure 129/80 01/12/2023 10:53 AM CDT Pulse 69 01/12/2023 10:53 AM CDT Temperature 36.6 C (97.8 F) 01/12/2023 9:46 AM CDT Respiratory Rate 16 01/12/2023 10:5 3 AM CDT Oxygen Saturation 97% 01/12/2023 10: 53 AM CDT Inhaled Oxygen Concentration - - Weight 91.5 kg (201 lb 11.5 oz) 01/12/2023 9:46 AM CDT Height 157.5 cm (5' 2) 07/18/2014 6:44 PM GRAPHICS COORDINATOR Body Mass Index 36.9 07/18/2014 6:44 PM GRAPHICS COORDINATOR Plan of Treatment Health Maintenance Due Date Last Done Comments Breast Cancer Screening-Mammogram 1975 Cervical Cancer Screening 1975 Colon Cancer Screening-Colonoscopy 1975 Depression Screening 1975 Hepatitis C Screening 1975 DTaP/Tdap/Td Vaccine (1 - Tdap) 1986 Hepatitis B Screening 1993 Regular Well Visit/Exam 18-64 1993 Pneumococcal vaccine <65 (1 of 2 - PCV) 1994 Influenza Vaccine (#1) 2025 04/20/2018, 2017 Zoster Vaccine (1 of 2) 2025 Insurance [employer] Care Teams Grocery Clerk Checking Relationship Specialty Start Date End Date Bethany Vasquez NP (Fax) PCP - General Nurse Practitioner 07/02/21
--- OUTSIDE RECORDS SUMMARY | 2025-05-19 17:46 | XMS_ITS | Encounter Summary ---
Author Organization [facility] Address [address] [place] [address] Care Team Providers Care Waiter/Waitress Name Role Phone Bethany Vasquez Primary Care Provider [phone] Encounter Details Date Type Department Care Team (Late Contact Info) Description 09/05/2023 [employer] HEALTH INFORMATION MANAGEMENT [address] [place] [address] [facility] Provider Proof of name change Social History Tobacco Use Types Packs/Day Years Used Date Smoking Tobacco: Every Day Cigarettes 1 35 Smokeless Tobacco: Never Alcohol Use Standard Drinks/Week Comments Yes 0 (1 standard drink = 0.6 oz pure alcohol) On occasion not on aregular basis PHQ-2 Answer Date Recorded Patient Health Questionnaire-2 Score 3 07/03/2023 Comments No Sex and Gender Information Value Date Recorded Sex Assigned at Female 07/27/2024 9:39 AM FIELD CROP FARMING SUPERVISOR Legal Sex Female 4:49 PM CDT Gender Identity Female 07/27/2024 9:39 AM FIELD CROP FARMING SUPERVISOR Sexual Orientation Straight 10/07/2024 1: 56 PM CDT documented as of this encounter Plan of Treatment Upcoming Encounters Date Type Department Care Team (Late Contact Info) Description 06/15/2025 2:30 PM FIELD CROP FARMING SUPERVISOR Treatment [facility], [address] [address] Bethany Vasquez APNP [address] [place] [address] 09/08/2025 2:30 PM FIELD CROP FARMING SUPERVISOR Treatment [facility] Services at [facility], [address] [address] Bethany Vasquez APNP [address] [place] [address] documented as of this encounter Visit Diagnoses Not on filedocumented in this encounter Additional Health Concerns Assessment Noted Time PHQ-9 Depression Total Score: 14 023 4:10 PM FIELD CROP FARMING SUPERVISOR documented as of this encounter Care Teams Waiter/Waitress Relationship Specialty Start Date End Date Bethany Vasquez APNP [address] [place] [address] PCP - General NURSE PRACTITIONER 07/30/17 documented as of this encounter
--- OUTSIDE RECORDS SUMMARY | 2025-05-19 17:46 | XMS_ITS | Encounter Summary ---
Author Organization [facility] Address [address] [place] [address] Care Team Providers Care Plastic Maker Name Role Phone Bethany Vasquez Primary Care Provider [phone] Encounter Details Date Type Department Care Team (Late st Contact Info) Description 03/22/2025 Results Follow-Up [address] [address] Nevaeh Hernandez RN USE ECHOCARDIOGRAM, CLINIC - OUTPATIENT EVENT RECORDER (ECG) UP TO 30 DAYS COMPLETE ([place]) Social History Tobacco Use Types Packs/Day Years [...] Sex Assigned at Female 07/27/2024 9:39 AM MINI LAB OPERATOR Legal Sex Female 4:49 PM CDT Gender Identity Female 07/27/2024 9:39 AM MINI LAB OPERATOR Sexual Orientation Straight 10/07/2024 1: 56 PM CDT documented as of this encounter Plan of Treatment Upcoming Encounters Date Type Department Care Team (Late st Contact Info) Description 06/15/2025 2:30 PM MINI LAB OPERATOR Treatment [facility] at [facility], [address] [address] Bethany Vasquez APNP [address] [place] [address] 09/08/2025 2:30 PM MINI LAB OPERATOR Treatment [facility]fusion Services at [facility], [address] [address] Bethany Vasquez APNP [address] [place] [address] documented as of this encounter Visit Diagnoses Not on filedocumented in this encounter Additional Health Concerns Assessment Noted Time PHQ-9 Depression Total Score: 20 12/16/ 025 3:26 PM CDT documented as of this encounter Care Teams Plastic Maker Relationship Specialty Start Date End Date Bethany Vasquez APNP [address] [place] [address] PCP - General NURSE PRACTITIONER 07/30/17 documented as of this encounter
[2025-05-19 17:48] VITALS: BP 126/96; PULSE 84; RESP 16; TEMP 36.6; O2SAT 99
[2025-05-19 19:32] VITALS: BP 131/90; PULSE 70; RESP 16; TEMP 36.6; O2SAT 97
--- OUTSIDE RECORDS SUMMARY | 2025-05-19 19:57 | XMS_ITS | Encounter Summary ---
Author Organization [facility] Address [address] [place] [address] Care Team Providers Care Gas Meter Installer Helper Name Role Phone Bethany Vasquez Primary Care Provider + Encounter Details Date Type Department Care Team (Late st Contact Info) Description 10/07/2024 CancerGuide Diagnosticst Message Enc [facility] Medical Group Family and Sports Medicine - [place] [address] [place] [address] Bethany Vasquez APNP [address] [place] [address] Anxiety Social History Tobacco Use Types Packs/Day [...] Sex Assigned at Female 07/27/2024 9:39 AM CHIEF CATALYST OPERATOR Legal Sex Female 4:49 PM CDT Gender Identity Female 07/27/2024 9:39 AM CHIEF CATALYST OPERATOR Sexual Orientation Straight 10/07/2024 1: 56 [...] st Contact Info) Description 06/15/2025 2:30 PM CHIEF CATALYST OPERATOR Treatment [facility] Infusion Services at [facility], [facility] [address] [place] [address] Bethany Vasquez APNP [address] [place] [address] 09/08/2025 2:30 PM CHIEF CATALYST OPERATOR Treatment [facility] Infusion Services at [facility], [facility] [address] [place] [address] Bethany Vasquez APNP [address] [place] [address] documented as of this encounter Visit Diagnoses Not on filedocumented in this encounter Additional Health Concerns Assessment Noted Time PHQ-9 Depression Total Score: 14 023 4:10 PM CHIEF CATALYST OPERATOR documented as of this encounter Care Teams Gas Meter Installer Helper Relationship Specialty Start Date End Date Bethany Vasquez APNP [address] [place] [address] PCP - General NURSE PRACTITIONER 07/30/17 documented as of this encounter
--- OUTSIDE RECORDS SUMMARY | 2025-05-19 19:57 | XMS_ITS | Encounter Summary ---
Author Organization [facility] Address [address] [place] [address] Care Team Providers Care Supervisor Airplane Flight Attendant Name Role Phone Bethany Vasquez Primary Care Provider + Encounter Details Date Type Department Care Team (Late st Contact Info) Description 03/25/2025 MyCVoice Assistt Message Enc [facility] Medical Group Family and Sports Medicine - [place] [address] [place] [address] Bethany Vasquez APNP [address] [place] [address] Migraine Social History Tobacco Use Types Packs/Day [...] Sex Assigned at Female 07/27/2024 9:39 AM TAPE EDITOR Legal Sex Female 4:49 PM CDT Gender Identity Female 07/27/2024 9:39 AM TAPE EDITOR Sexual Orientation Straight 10/07/2024 1: 56 PM CDT documented as of this encounter Plan of Treatment Upcoming Encounters Date Type Department Care Team (Late st Contact Info) Description 06/15/2025 2:30 PM TAPE EDITOR Treatment [facility] at [facility], [address] [address] Bethany Vasquez APNP [address] [place] [address] 09/08/2025 2:30 PM TAPE EDITOR Treatment [facility] at [facility], [address] [address] Bethany Vasquez APNP [address] [place] [address] documented as of this encounter Visit Diagnoses Not on filedocumented in this encounter Additional Health Concerns Assessment Noted Time PHQ-9 Depression Total Score: 20 025 3:26 PM CDT documented as of this encounter Care Teams Supervisor Airplane Flight Attendant Relationship Specialty Start Date End Date Bethany Vasquez APNP [address] [place] [address] PCP - General NURSE PRACTITIONER 07/30/17 documented as of this encounter
--- OUTSIDE RECORDS SUMMARY | 2025-05-19 19:57 | XMS_ITS | Encounter Summary ---
Author Organization [facility] Address [address] [place] [address] Care Team Providers Care Clamp Truck Driver Name Role Phone Bethany Vasquez Primary Care Provider Encounter Details Date Type Department Care Team (Late st Contact Info) Description 12/26/2018 Abstract [facility] CONVERSION [address] [place] [address] , Generic Conversion, Social History Tobacco Use Types Packs/Day Years Used Date Smoking Tobacco: Never Assessed Comments Unknown Sex and Gender Information Value Date Recorded Sex Assigned at Female 07/27/2024 9:39 AM TAPING SUPERVISOR Legal Sex Female 4:49 PM CDT Gender Identity Female 07/27/2024 9:39 AM TAPING SUPERVISOR Sexual Orientation Straight 10/07/2024 1: 56 PM CDT documented as of this encounter Plan of Treatment Upcoming Encounters Date Type Department Care Team (Late Contact Info) Description 06/15/2025 2:30 PM TAPING SUPERVISOR Treatment [facility] at [address] [address] Bethany Vasquez APNP [address] [place] [address] 09/08/2025 2:30 PM TAPING SUPERVISOR [facility] [address] [address] Bethany Vasquez APNP [address] [place] [address] documented as of this encounter Visit Diagnoses Not on filedocumented in this encounter Care Teams Clamp Truck Driver Relationship Specialty Start Date End Date Bethany Vasquez APNP [address] [place] [address] PCP - General NURSE PRACTITIONER 07/30/17 documented as of this encounter
--- OUTSIDE RECORDS SUMMARY | 2025-05-19 19:57 | XMS_ITS | Encounter Summary ---
Author Organization [facility] Address [address] [place] [address] Care Team Providers Care Delivery Room Clerk Name Role Phone Bethany Vasquez Primary Care Provider [phone] Encounter Details Date Type Department Care Team (Late st Contact Info) Description 10/11/2024 MyCInterview Rockett Message Enc [facility] Medical Group Family and Sports Medicine - [place] [address] [place] [address] Bethany Vasquez APNP [address] [place] [address] Hemeroid ? Social History Tobacco Use Types [...] Sex Assigned at Female 07/27/2024 9:39 AM WOOD BLOCK ARTIST Legal Sex Female 4:49 PM CDT Gender Identity Female 07/27/2024 9:39 AM WOOD BLOCK ARTIST Sexual Orientation Straight 10/07/2024 1: 56 PM CDT documented as of this encounter Plan of Treatment Upcoming Encounters Date Type Department Care Team (Late st Contact Info) Description 06/15/2025 2:30 PM WOOD BLOCK ARTIST Treatment [facility] at [facility], [address] [address] Bethany Vasquez APNP [address] [place] [address] 09/08/2025 2:30 PM WOOD BLOCK ARTIST Treatment [facility] at [facility], [address] [address] Bethany Vasquez APNP [address] [place] [address] documented as of this encounter Visit Diagnoses Not on filedocumented in this encounter Additional Health Concerns Assessment Noted Time PHQ-9 Depression Total Score: 14 023 4:10 PM WOOD BLOCK ARTIST documented as of this encounter Care Teams Delivery Room Clerk Relationship Specialty Start Date End Date Bethany Vasquez APNP [address] [place] [address] PCP - General NURSE PRACTITIONER 07/30/17 documented as of this encounter
--- OUTSIDE RECORDS SUMMARY | 2025-05-19 19:57 | XMS_ITS | Clinical Summary ---
Author Organization [facility] Address [address] [place] [address] Care Team Providers Care Manufacturing Executive Name Role Phone Altaf Vasquez Primary Care Provider [phone] Allergies Active Allergy Reactions Criticality Noted Date [...] Description 05/13/2025 10:00 AM CDT Office Visit [facility] [address] Ashwini Falcon MD Palpitations (MCT/ECHO FU/) 05/12/2025 2:33 PM CDT - 05/12/2025 11:59 PM CDT Hospital Encounter [facility] [address] [place] [address] Altaf Vasquez APNP Discharge Disposition: Home or Self Care (Routine Discharge) 05/12/2025 Travel 05/05/2025 Orders Only [facility] Medical Group Family and Sports Medicine - [place] [address] [place] [address] Poirot, Altaf, APNP 05/05/2025 MyChart Message Enc [facility] [address] [place] [address] Poirot, Altaf, APNP Migraine 04/27/2025 MyChart Message Enc [facility] [address] [place] [address] Poirot, Altaf, APNP MRI insurance question 04/25/2025 Scan Viadeo INFO SRVCS Scanned, [facility] 04/25/2025 Orders Only [facility] at [address] [address] Poirot, Altaf, APNP 04/25/2025 MyChart Message Enc [facility] [address] [place] [address] Poirot, Altaf, APNP Infusion 03/25/2025 MyChart Message [facility] [address] [place] [address] Poirot, Altaf, APNP Migraine 03/24/2025 2:30 PM CDT Treatment [facility] at [address] [address] Poirot, Altaf, APNP Infusion Therapy 03/24/2025 Travel 03/22/2025 Results Follow-Up [facility] [address] [place] [address] Nevaeh Hernandez RN USE ECHOCARDIOGRAM, CLINIC - OUTPATIENT EVENT RECORDER (ECG) UP TO 30 DAYS COMPLETE (Holter) 03/18/2025 2:29 PM CDT - 03/18/2025 11:59 PM CDT Hospital Encounter [facility] [place] [address] Ashwini Falcon MD Discharge Disposition: Home or Self Care (Routine Discharge) 03/18/2025 10:45 AM CDT Telephone [facility], [address] [address] Ashwini Falcon MD Holter Monitor 03/18/2025 Travel 03/16/2025 Telephone [facility] [address] [place] [address] Altaf Vasquez APNP Prior Authorization (FYI) 03/11/2025 10:00 AM CDT Office Visit [facility] [address] Ashwini Falcon MD Palpitations (consult) 03/11/2025 Orders Only [facility] [address] [address] Ashwini Falocn MD 03/11/2025 Orders Only [facility] at [address] [address] Altaf Vasquez APNP 03/10/2025 3:00 PM CDT Office Visit [facility] [address] [place] [address] Altaf Vasquez APNP Follow Up; Headache (Pt still having migraines, requesting adjusting Ajovy dosage) 03/10/2025 Scan HEALTH INFO SRVCS Scanned, [facility] 03/10/2025 Travel 03/03/2025 3:40 PM CDT Allied Health/Nurse Visit [facility] Sports [facility] [address] [place] [address] Altaf Vasquez APNP Migraine (Pt here for a Toradol injection, given in Right Dorsal Gluteal) 03/03/2025 Travel 03/03/2025 MyChart Message [facility] [address] [place] [address] Altaf Vasquez APNP 2 week migraine 02/28/2025 MyChart Message [facility] [address] [place] [address] Altaf Vasquez APJODIE Migraine med question from [...] Sex Assigned at Female 07/27/2024 9:39 AM PSYCHOSOCIAL REHABILITATION COUNSELOR Legal Sex Female 4:49 PM CDT Gender Identity Female 07/27/2024 9:39 AM PSYCHOSOCIAL REHABILITATION COUNSELOR Sexual Orientation Straight 10/07/2024 1: 56 PM [...] st Contact Info) Description 06/15/2025 2:30 PM PSYCHOSOCIAL REHABILITATION COUNSELOR Treatment [facility] at [facility], [address] [address] Altaf Vasquez, APNP [address] [place] [address] 09/08/2025 2:30 PM PSYCHOSOCIAL REHABILITATION COUNSELOR Treatment [facility] at [facility], [facility] [address] [place] [address] Altaf Vasquez, APNP [address] [place] [address] Health Maintenance Due Date Last Done Comments [...] exists Hepatitis C Completed 04/09/2018 PHQ-2 (Physician [place]) Completed 12/16/2024 Hepatitis A Vaccines Aged Out [...] this topic Medical Devices Implanted Type Area Firer Automatic Stoker Device Identifier Shelf Expiration Date Model / Serial / Lot Mesh Ventralex St Medium With Strap [id number] - [id number] Implanted:Qty: 1 on 09/30/2024 by Roly Michael MD at [facility] Mesh N/A: Abdomen [employer] - [employer] 12/15/2025 [id number] / / [id number] Procedures Procedure Name Priority Date/Time Associated Diagnosis [...] W OLESYA LT DIGI Routine 1:17 PM PSYCHOSOCIAL REHABILITATION COUNSELOR Abnormal mammogram from Last 3 Months or [...] 3:30 PM Narrative 05/19/2025 3:45 PM CDT [facility] [address] [place] [address] IMAGING STUDIES: MRI BRAIN WWO CON DATE: [...] Procedure Note Fortino Hernandez MD - 05/19/2025 [facility] [address] [place] [id number] IMAGING STUDIES: MRI BRAIN WWO CON DATE: [...] COMPLETE (Holter) (04/04/2025 12:21 PM CDT) Narrative idiag - 04/04/2025 12:21 PM CDT EVENT MONITOR REPORT Patient Name: Hanane David : 1975 Sql Server Dba Developer Date: 03/23/2025 Performed At: [place] Interpreting Retail Wireless Associate: Dr. Meneses PCP: YOCASTA HAWK INDICATION: Arrhythmia DURATION OF MONITORIN days NUMBER OF TRANSMISSIONS: 3 INTERPRETATION: Sinus rhythm, rates 56-1 36 with average rate 70 No pauses MI 0.16 QRS 0.10 QTc 0.40 3 patient [...] CDT Echocardiography Report Pat.Name: HANANE DAVID Pat.ID: [id number] St.Date: 03/18/2025 Refer.MD: [id number] TERRIE MARADIAGA EWDPROV EWDPROV Exam Time: 2:35:00 PM Study Type:ECHO WITH CARDIAC DOPPLER COMP Height: 63 in Weight: 194 lb BSA: 1.91 m2 Age: 9 1975,49Y Sex: F BP: 126/80 HR: 71 bpm Sonogrphr: Alonso Stewart [facility] Pat. Stat.:Outpatient Reason for [...] 32 mm Right Ventricle 23 mm Major Hathaway 60 mm MMODE TA Tricuspid Annul 17.2 mm <Electronic Signature> 03/22/2025 09:43 AM Ashwini Falcon M.D. Procedure Note Ashwini Falcon MD - 03/22/2025 Echocardiography Report Pat.Name: HANANE DAVID Pat.ID: [id number] .Date: 03/18/2025 Refer.: [id number] MARAD[facility]AGA [facility] EWD[facility] Exam Time: 2:35:00 PM Study Type:ECHO WITH CARDIAC DOPPLER COMP Height: 63 in Weight: 194 lb BSA: 1.91 m2 Age: 9 1975,49Y Sex: F BP: 126/80 HR: 71 bpm Sonogrphr: Alonso Stewart [facility] Pat. Stat.:Outpatient Reason for [...] 32 mm Right Ventricle 23 mm Major Hathaway 60 mm MMODE TA Tricuspid Annul 17.2 mm <Electronic Signature> 03/22/2025 09:43 AM Ashwini Falcon M.D. us Ashwini Falcon MD ECHO Final Resul t * ELECTROCARDIOGRAM (03/11/2025 10:07 AM CDT) 03/11/2025 10:0 7 AM CDT [facility] CARDIOVASCULAR - 03/15/2025 10:21 AM CDT [address] [address] Test Date: 2025-03-11 Pat Name: HANANE DAVID Department: 177 Room: Gender: Female Financial Reporting Accountant: harley : 1975 Requested By: ASHWINI FALCON Order Number: [id number] Reading MD: Ashwini Falcon Measurements Intervals Hathaway Rate: 64 P: 31 MI: 170 QRS: -9 QRSD: 101 T: 44 QT: 400 QTc: 414 Interpretive Statements SINUS RHYTHM Procedure Note Ashwini Falcon MD - 03/15/[address] [address] Test Date: 2025-03-11 Pat Name: HANANE DAVID Department: 177 Room: Gender: Female Financial Reporting Accountant: harley : 1975 Requested By: ASHWINI FALCON Order Number: [id number] Reading MD: Ashwini Falcon Measurements Intervals Hathaway Rate: 64 P: 31 MI: 170 QRS: -9 QRSD: 101 T: 44 QT: 400 QTc: 414 Interpretive Statements SINUS RHYTHM Ashwini Falcon MD PROCEDURES-ORDERABLE NO COURTNEY RGE Final Result [facility] * MG DIAG W OLESYA LT DIGI (08/20/2024 1:17 PM PSYCHOSOCIAL REHABILITATION COUNSELOR) Anatomical Region Laterality Modality Breast Left Mammography 08/20/2024 1:27 PM PSYCHOSOCIAL REHABILITATION COUNSELOR Impressions 08/20/2024 1:29 PM PSYCHOSOCIAL REHABILITATION COUNSELOR IMPRESSION: Effacing superimposed glandular tissue. No mammographic evidence of malignancy. RECOMMENDATION: Routine ScreeningBilateral Findings, impression, and recommendation were discussed with the patient immediately following exam completion. OVERALL IMAGING ASSESSMENT: ACR BI-RADS 2 - BENIGN FINDING(S). Ordered By: ALTAF VASQUEZ Interpreted By: Kem Bell, 08/20/2024 1:27 PM Narrative 08/20/2024 1:29 PM PSYCHOSOCIAL REHABILITATION COUNSELOR [facility] [address] [place] [address] EXAMINATION: MG DIAG W OLESYA LT DIGI [...] Most Recently Relevant to Health Maintenance Insurance [facility] Care Teams Manufacturing Executive Relationship Specialty Start Date End Date Altaf Vasquez APNP [address] [place] [address] PCP - General NURSE PRACTITIONER 07/30/17
--- OUTSIDE RECORDS SUMMARY | 2025-05-19 19:57 | XMS_ITS | Encounter Summary ---
Author Organization [facility] Address [address] [place] [address] Care Team Providers Care Flavor Extractor Name Role Phone Bethany Vasquez Primary Care Provider [phone] Encounter Details Date Type Department Care Team (Late st Contact Info) Description 04/27/2025 [place] Message Enc [facility] Medical Group Family and Sports Medicine - [place] [address] [place] [address] Bethany Vasquez APNP [address] [place] [address] MRI insurance question Social History Tobacco Use [...] Sex Assigned at Female 07/27/2024 9:39 AM BIRD KEEPER Legal Sex Female 4:49 PM CDT Gender Identity Female 07/27/2024 9:39 AM BIRD KEEPER Sexual Orientation Straight 10/07/2024 1: 56 PM CDT documented as of this encounter Plan of Treatment Upcoming Encounters Date Type Department Care Team (Late st Contact Info) Description 06/15/2025 2:30 PM BIRD KEEPER Treatment [facility], [address] [address] Bethany Vasquez APNP [address] [place] [address] 09/08/2025 2:30 PM BIRD KEEPER Treatment [facility] at [facility], [place] [address] [place] [address] Bethany Vasquez APNP [address] [place] [address] documented as of this encounter Visit Diagnoses Not on filedocumented in this encounter Additional Health Concerns Assessment Noted Time PHQ-9 Depression Total Score: 20 025 3:26 PM CDT documented as of this encounter Care Teams Flavor Extractor Relationship Specialty Start Date End Date Bethany Vasquez APNP [address] [place] [address] PCP - General NURSE PRACTITIONER 07/30/17 documented as of this encounter
--- OUTSIDE RECORDS SUMMARY | 2025-05-19 19:58 | XMS_ITS | Encounter Summary ---
Author Organization [facility] Address [address] [place] [address] Care Team Providers Care Chief Information Security Officer Name Role Phone Bethany Vasquez Primary Care Provider [phone] Encounter Details Date Type Department Care Team (Late st Contact Info) Description 03/22/2025 Results Follow-Up [address] [address] Nevaeh Hernandez RN USE ECHOCARDIOGRAM, CLINIC - [...] Sex Assigned at Female 07/27/2024 9:39 AM DIESEL TRACTOR ENGINE MECHANIC Legal Sex Female 4:49 PM CDT Gender Identity Female 07/27/2024 9:39 AM DIESEL TRACTOR ENGINE MECHANIC Sexual Orientation Straight 10/07/2024 1: 56 PM CDT documented as of this encounter Plan of Treatment Upcoming Encounters Date Type Department Care Team (Late st Contact Info) Description 06/15/2025 2:30 PM DIESEL TRACTOR ENGINE MECHANIC Treatment [facility], [address] [address] Bethany Vasquez APNP [address] [place] [address] 09/08/2025 2:30 PM DIESEL TRACTOR ENGINE MECHANIC Treatment [facility] Services at [facility], [address] [address] Bethany Vasquez APNP [address] [place] [address] documented as of this encounter Visit Diagnoses Not on filedocumented in this encounter Additional Health Concerns Assessment Noted Time PHQ-9 Depression Total Score: 20 12/16/ 025 3:26 PM CDT documented as of this encounter Care Teams Chief Information Security Officer Relationship Specialty Start Date End Date Bethany Vasquez APNP [address] [place] [address] PCP - General NURSE PRACTITIONER 07/30/17 documented as of this encounter
--- OUTSIDE RECORDS SUMMARY | 2025-05-19 19:58 | XMS_ITS | Encounter Summary ---
Author Organization [facility] Address [address] [place] [address] Care Team Providers Care Tyre Finisher And Examiner Name Role Phone Bethany Vasquez Primary Care Provider [phone] Encounter Details Date Type Department Care Team (Late Contact Info) Description 09/05/2023 [employer] HEALTH INFORMATION MANAGEMENT [address] [place] [address] [employer], [facility] Provider Proof of name change Social History [...] Sex Assigned at Female 07/27/2024 9:39 AM DIALYSIS SOCIAL WORKER Legal Sex Female 4:49 PM CDT Gender Identity Female 07/27/2024 9:39 AM DIALYSIS SOCIAL WORKER Sexual Orientation Straight 10/07/2024 1: 56 PM CDT documented as of this encounter Plan of Treatment Upcoming Encounters Date Type Department Care Team (Late Contact Info) Description 06/15/2025 2:30 PM DIALYSIS SOCIAL WORKER Treatment [facility], [address] [address] Bethany Vasquez APNP [address] [place] [address] 09/08/2025 2:30 PM DIALYSIS SOCIAL WORKER Treatment [facility] at [facility], [address] [address] Bethany Vasquez APNP [address] [place] [address] documented as of this encounter Visit Diagnoses Not on filedocumented in this encounter Additional Health Concerns Assessment Noted Time PHQ-9 Depression Total Score: 14 023 4:10 PM DIALYSIS SOCIAL WORKER documented as of this encounter Care Teams Tyre Finisher And Examiner Relationship Specialty Start Date End Date Bethany Vasquez APNP [address] [place] [address] PCP - General NURSE PRACTITIONER 07/30/17 documented as of this encounter
--- OUTSIDE RECORDS SUMMARY | 2025-05-19 19:58 | XMS_ITS | Clinical Summary ---
Author Organization [facility] Address [address] [place] [address] Care Team Providers Care Automobile Brakes Bonder Name Role Phone Bethany Vasquez NP Primary [...] 07/06/2021 Assessment & Plan (07/06/2021 2:54 PM EDI ANALYST): Risks, benefits and alternatives were discussed. Risks [...] on file Legal Sex Female 7:12 PM EDI ANALYST Gender Identity Not on file Sexual Orientation [...] 157.5 cm (5' 2) 07/18/2014 6:44 PM EDI ANALYST Body Mass Index 36.9 07/18/2014 6:44 PM EDI ANALYST Plan of Treatment Health Maintenance Due Date [...] Zoster Vaccine (1 of 2) 2025 Insurance [employer] Care Teams Automobile Brakes Bonder Relationship Specialty Start Date End Date Bethany Vasquez NP (Fax) PCP - General Nurse Practitioner 07/02/21
[2025-05-19] MEDS: SODIUM CHLORIDE 0.9% IV 1,000 ML 999 ML IV CONT (20:02)
[2025-05-19] MEDS: KETOROLAC 30 MG/ML VIAL (*BKC) IV PUSH (20:04)
[2025-05-19] MEDS: ACETAMINOPHEN 500 MG TABLET 1000 MG PO (20:06)
[2025-05-19] MEDS: dexAMETHasone SOD PHOS INJ 10 MG/ML 1 ML VIAL IV PUSH (20:11)
[2025-05-19] MEDS: PROCHLORPERAZINE EDISYLATE 10 MG/2 ML VIAL IV PUSH (20:11)
[2025-05-19 21:00] VITALS: O2SAT 95
[2025-05-19 21:01] VITALS: BP 114/65; PULSE 62; TEMP 36.6; O2SAT 96
--- NOTE | 2025-05-19 21:18 | PC.NURSE ---
pt states symptoms have improved with medication, PA made aware. Pt now lying on stretcher with eyes closed respirations even and unlabored.
--- NOTE | 2025-05-19 21:30 | ED.HA ---
HPI - Headache General Chief Complaint: Headache Stated Complaint: migraine x2 months Time Seen by Provider: 05/19/25 18:47 Source: patient Mode of arrival: ambulatory Limitations: no limitations History of Present Illness HPI Narrative: Patient is a 50-year-old female who presents the ED with report of a headache. Patient reports long history of migraines. She is on a monthly injection, as well is prescribed Nurtec for abortive therapy. Reports having a persistent frontal/tension headache for the past 2 months. States this is consistent with her typical migraines. Has been taking her normal medications as well as Excedrin, using massage gun w/o improvement. Reports photophobia, phonophobia, lightheadedness, nausea. Denies vision changes, focal weakness/numbness. Patient had an MRI performed of her brain 2 weeks ago, which she was able to show me on her phone. No acute findings. She does have a benign venous angioma. Related Data Home Medications ?Medication ?Instructions ?Recorded ?Confirmed ?Last Taken ?Type black cohosh 540 mg capsule 1,080 mg PO DAILY 04/11/22 04/19/22 04/12/22 History loratadine 10 mg tablet (Claritin) 10 mg PO DAILY 04/11/22 04/11/22 Unknown History red clover leaf extract 500 mg 1,600 mg PO DAILY 04/11/22 04/19/22 04/14/22 History tablet tizanidine 4 mg tablet 8 mg PO BID 04/11/22 04/19/22 04/12/22 History topiramate 50 mg tablet 50 mg PO DAILY 04/11/22 04/19/22 04/12/22 History trazodone 50 mg tablet 50 mg PO HS 04/11/22 04/19/22 04/12/22 History fremanezumab-vfrm 225 mg/1.5 mL 225 mg subcut MONTHLY 04/15/22 04/19/22 04/16/22 History subcutaneous auto-injector (Ajovy) loratadine 10 mg tablet (Claritin) 10 mg PO DAILY 04/19/22 04/19/22 04/12/22 History Allergies Allergy/AdvReac Type Severity Reaction Status Date / Time codeine Allergy Severe Loss of Verified 07/14/23 20:40 Consciousness banana Allergy Intermediate Headache Verified 07/14/23 20:40 diazepam Allergy Intermediate Hives Verified 07/14/23 20:40 milk Allergy Intermediate Headache Verified 07/14/23 20:40 Sulfa (Sulfonamide Allergy Mild Hives / Verified 07/14/23 20:40 Antibiotics) Red Face adhesive tape Allergy Unknown Rash Verified 07/14/23 20:40 BRAXTON PEPPERS Allergy Severe Anaphylaxis Uncoded 07/14/23 20:40 Review of Systems Review of Systems: All systems reviewed & are unremarkable except as noted in HPI. All systems reviewed & are unremarkable except as noted in HPI and below [facility] Past Medical History Medical History Obesity Cervical ca Asthma History of migraine Social History Social History Smoking packs per day: 1 Smoking cigarettes per day: 20.0 Years smoked: 34 Smoking pack-years: 34.00 Smoking status: Current every day smoker Tobacco type: cigarettes Second hand tobacco smoke exposure: No Alcohol use details: SPECIAL OCCASIONS Substance use: never Substance use type: does not use Living arrangements: with family Spiritual care concerns: No Exam Narrative: GENERAL: Well appearing, obese with BMI of 32.6, non-toxic, in no acute distress. HEAD: Normocephalic, atraumatic. EYES: PERRL/EOMI, conjunctiva clear. No nystagmus NECK: No meningeal signs. RESPIRATORY: Airway patent, respirations nonlabored. Clear to auscultation bilaterally, no rales, rhonchi, wheezing. CARDIOVASCULAR: Regular rate and rhythm without murmurs, rubs, or gallops. MUSCULOSKELETAL: Moves all extremities. No gross deformities. SKIN: Warm, dry, normal color. NEURO: A&O X3. Speech clear. Cranial nerves II-XII grossly intact. Steady gait. No ataxic movements. No focal deficits. PSYCHIATRIC: Appropriate mood and affect. Normal interaction. Course Vital Signs Vital signs: Vital Signs Temperature 97.8 F 05/19/25 17:48 Pulse Rate 84 05/19/25 17:48 Respiratory Rate 16 05/19/25 17:48 Blood Pressure 126/96 H 05/19/25 17:48 Pulse Oximetry 99 05/19/25 17:48 Oxygen Delivery Room Air 05/19/25 17:48 Temperature 98 F 05/19/25 21:01 Pulse Rate 97 05/19/25 21:47 Respiratory Rate 16 05/19/25 21:47 Blood Pressure 117/70 05/19/25 21:47 Pulse Oximetry 95 05/19/25 21:47 Oxygen Delivery Room Air 05/19/25 19:32 MDM - Headache MDM Narrative Medical decision making narrative: Patient's headache was not sudden in onset or maximal in severity. There are no focal neurological deficits on exam. Subarachnoid hemorrhage is felt to be unlikely at this time. There is no history of fever and neck is supple on evaluation without meningeal signs. Meningitis is felt to be unlikely. No traumatic history or signs of trauma on evaluation. No vision changes or ocular signs of acute glaucoma. States this feels typical of her normal migraines. Additionally, she had an MRI of her brain performed 2 weeks ago during this current episode of migraine pain. This was unremarkable. I was able to view the record this on her phone. Do not feel further advanced imaging is indicated at this time. Patient feeling much better after migraine cocktail. Patient's headache is felt to be benign cephalgia and reasonable for further outpatient management. Advised patient to follow with PCP for further evaluation. Given reasons to return. She is in agreement with plan. Feels comfortable going home. Discharged in stable condition. Given work note for tomorrow. Medical Records Attestation: I reviewed the patient's medical records. Discharge Plan Discharge Clinical Impression: Migraine Qualifiers: Migraine type: unspecified Status migrainosus presence: without status migrainosus Intractability: not intractable Qualified Code(s): G43.909 - Migraine, unspecified, not intractable, without status migrainosus Patient Disposition: Home Condition: Stable Instructions: Antibiotic Form, Migraine Headache (ED), Acute Headache (ED) Additional Instructions: Continue Tylenol and ibuprofen, your home migraine medications as needed for pain. Utilize Zofran as needed for further nausea. Get plenty of rest. Stay well hydrated. Recommend low light/ low stimulus environment, limiting screen time. Follow-up with your primary care doctor for further evaluation if needed. Return to the ED if you experience worsening or severe pain, severe dizziness, vision changes, unable to keep down food or drink, or any other symptoms of concern. Patient Language: Estonian Prescriptions: New ondansetron 4 mg tablet,disintegrating 4 mg PO Q8H PRN (Reason: nausea and vomiting) Qty: 15 0RF No Action trazodone 50 mg tablet 50 mg PO HS tizanidine 4 mg tablet 8 mg PO BID black cohosh 540 mg Capsule 1,080 mg PO DAILY Rx Instructions: HOT FLASHES red clover leaf extract 500 mg Tablet 1,600 mg PO DAILY topiramate 50 mg tablet 50 mg PO DAILY loratadine [Claritin] 10 mg Tablet 10 mg PO DAILY Ajovy Autoinjector 225 mg/1.5 mL auto-injector 225 mg SUBCUT MONTHLY Rx Instructions: TAKING 04/15/22 migraine preventative loratadine [Claritin] 10 mg Tablet 10 mg PO DAILY meperidine 50 mg tablet 50 mg PO Q6H PRN (Reason: pain) Qty: 20 0RF methylprednisolone [Medrol (Sesar)] 4 mg tablets,dose pack See Rx Instructions PO .COMPLEX Qty: 21 0RF Rx Instructions: orally per package directions methocarbamol 1,000 mg tablet 1,000 mg PO TID Qty: 15 0RF Follow-up/Referrals: Pedro,Bethany Valentin NP [Primary Care Provider, Unknown] Stand Alone Forms: Work/School Release IP Time of Disposition: 21:33
[2025-05-19 21:47] VITALS: BP 117/70; PULSE 97; RESP 16; O2SAT 95
== END 2025-05-19 21:47 | disposition home or self-care (01) ==
PROVIDERS: Emergency Provider Physician Assistant; PCP Nurse Practitioner
DX: G43.909 Migraine, unspecified, not intractable, without status migrainosus (principal); J45.909 Unspecified asthma, uncomplicated; E66.9 Obesity, unspecified; Z68.32 Body mass index [BMI] 32.0-32.9, adult; Z85.41 Personal history of malignant neoplasm of cervix uteri
CPT/HCPCS: 96361; 96374; 96375; 99284; A9270; J0780; J1100; J1200; J1885; J7030

== ENCOUNTER 2025-05-29 12:50 | Emergency (ER) | payer BC, SELFPAY ==
--- NOTE | ~2025-05-29 | CT_ITS ---
EXAMINATION: CT brain wo con COMPARISON: None HISTORY: migraine TECHNIQUE: Axial images were obtained through the brain without IV contrast. CT scan performed using dose optimization techniques including the following automated exposure control; adjustment of mA and/or kV; use of iterative reconstruction technique. Automatic exposure control was used to reduce radiation dose. Permanent radiation dose record is archived to PACS. FINDINGS: No acute infarct or parenchymal hemorrhage. No abnormal mass or mass effect. No midline shift. No extra-axial fluid collections. No hydrocephalus. . Mastoid air cells unremarkable. Sinuses and orbits unremarkable. No acute fracture. No significant facial or scalp soft tissue swelling evident. No radiopaque foreign body is seen. Impression: 1.No acute intracranial abnormality. Reviewed, dictated and finalized at location [facility] Impression: 1.No acute intracranial abnormality.
[2025-05-29 12:58] VITALS: BP 117/85; PULSE 96; RESP 18; TEMP 36.8; O2SAT 95
--- OUTSIDE RECORDS SUMMARY | 2025-05-29 13:12 | XMS_ITS | Encounter Summary ---
Author Organization [facility] Address [address] [place] [address] Care Team Providers Care Product Management Analyst Name Role Phone Bethany Vasquez Primary Care Provider + Encounter Details Date Type Department Care Team (Late st Contact Info) Description 10/07/2024 [employer] Message Enc [facility] - [place] [address] [place] [address] Bethany Vasquez APNP [address] [place] [address] Anxiety Social History Tobacco Use Types Packs/Day [...] Sex Assigned at Female 07/27/2024 9:39 AM TOE STAPLER Legal Sex Female 4:49 PM CDT Gender Identity Female 07/27/2024 9:39 AM TOE STAPLER Sexual Orientation Straight 10/07/2024 1: 56 PM [...] st Contact Info) Description 06/15/2025 2:30 PM TOE STAPLER Treatment [facility] at [facility], [facility] [address] [place] [address] Bethany Vasquez APNP [address] [place] [address] 09/08/2025 2:30 PM TOE STAPLER Treatment [facility] at [facility], [facility] [address] [place] [address] Bethany Vasquez APNP [address] [place] [address] documented as of this encounter Visit Diagnoses Not on filedocumented in this encounter Additional Health Concerns Assessment Noted Time PHQ-9 Depression Total Score: 14 023 4:10 PM TOE STAPLER documented as of this encounter Care Teams Product Management Analyst Relationship Specialty Start Date End Date Bethany Vasquez APNP [address] [place] [address] PCP - General NURSE PRACTITIONER 07/30/17 documented as of this encounter
--- OUTSIDE RECORDS SUMMARY | 2025-05-29 13:12 | XMS_ITS | Encounter Summary ---
Author Organization [facility] Address [address] [place] [address] Care Team Providers Care Store Warehouse Associate Name Role Phone Bethany Vasquez Primary Care Provider [phone] Encounter Details Date Type Department Care Team (Late st Contact Info) Description 04/27/2025 Educabili[employer] Message Enc [facility] Family [facility] Sports Medicine - [place] [address] [place] [address] Bethany Vasquez APNP [address] [place] [address] MRI insurance question Social History Tobacco Use [...] Sex Assigned at Female 07/27/2024 9:39 AM SUPERVISOR TAN ROOM Legal Sex Female 4:49 PM CDT Gender Identity Female 07/27/2024 9:39 AM SUPERVISOR TAN ROOM Sexual Orientation Straight 10/07/2024 1: 56 PM CDT documented as of this encounter Plan of Treatment Upcoming Encounters Date Type Department Care Team (Late st Contact Info) Description 06/15/2025 2:30 PM SUPERVISOR TAN ROOM Treatment [facility] at [facility], [address] [address] Bethany Vasquez APNP [address] [place] [address] 09/08/2025 2:30 PM SUPERVISOR TAN ROOM Treatment [facility] at [facility], [place] [address] [place] [address] Bethany Vasquez APNP [address] [place] [address] documented as of this encounter Visit Diagnoses Not on filedocumented in this encounter Additional Health Concerns Assessment Noted Time PHQ-9 Depression Total Score: 20 025 3:26 PM CDT documented as of this encounter Care Teams Store Warehouse Associate Relationship Specialty Start Date End Date Bethany Vasquez APNP [address] [place] [address] PCP - General NURSE PRACTITIONER 07/30/17 documented as of this encounter
--- OUTSIDE RECORDS SUMMARY | 2025-05-29 13:12 | XMS_ITS | Encounter Summary ---
Author Organization [facility] Address [address] [place] [address] Care Team Providers Care Meal Temperer Name Role Phone Bethany Vasquez Primary Care Provider [phone] Encounter Details Date Type Department Care Team (Late st Contact Info) Description 03/25/2025 [employer] Message Enc [facility] Medical Group Family and Sports Medicine - [place] [address] [place] [address] Bethany Vasquez APNP [address] [place] [address] Migraine Social History Tobacco Use Types Packs/Day [...] Sex Assigned at Female 07/27/2024 9:39 AM REFRIGERATION UNIT REPAIRER Legal Sex Female 4:49 PM CDT Gender Identity Female 07/27/2024 9:39 AM REFRIGERATION UNIT REPAIRER Sexual Orientation Straight 10/07/2024 1: 56 PM CDT documented as of this encounter Plan of Treatment Upcoming Encounters Date Type Department Care Team (Late st Contact Info) Description 06/15/2025 2:30 PM REFRIGERATION UNIT REPAIRER Treatment [facility] at [facility], [address] [address] Bethany Vasquez APNP [address] [place] [address] 09/08/2025 2:30 PM REFRIGERATION UNIT REPAIRER Treatment [facility] at [facility], [address] [address] Bethany Vasquez APNP [address] [place] [address] documented as of this encounter Visit Diagnoses Not on filedocumented in this encounter Additional Health Concerns Assessment Noted Time PHQ-9 Depression Total Score: 20 025 3:26 PM CDT documented as of this encounter Care Teams Meal Temperer Relationship Specialty Start Date End Date Bethany Vasquez APNP [address] [place] [address] PCP - General NURSE PRACTITIONER 07/30/17 documented as of this encounter
--- OUTSIDE RECORDS SUMMARY | 2025-05-29 13:12 | XMS_ITS | Encounter Summary ---
Author Organization [facility] Address [address] [place] [address] Care Team Providers Care Parts Administrator Name Role Phone Bethany Vasquez Primary Care Provider [phone] Encounter Details Date Type Department Care Team (Late st Contact Info) Description 12/26/2018 Abstract [facility] CONVERSION [address] [place] [address] , Generic Conversion, Social History Tobacco Use Types Packs/Day Years Used Date Smoking Tobacco: Never Assessed Comments Unknown Sex and Gender Information Value Date Recorded Sex Assigned at Female 07/27/2024 9:39 AM MEDICAL BILLING ASSOCIATE Legal Sex Female 4:49 PM CDT Gender Identity Female 07/27/2024 9:39 AM MEDICAL BILLING ASSOCIATE Sexual Orientation Straight 10/07/2024 1: 56 PM CDT documented as of this encounter Plan of Treatment Upcoming Encounters Date Type Department Care Team (Late Contact Info) Description 06/15/2025 2:30 PM MEDICAL BILLING ASSOCIATE Treatment [facility] at [address] [address] Bethany Vasquez APNP [address] [place] [address] 09/08/2025 2:30 PM MEDICAL BILLING ASSOCIATE Treatment [facility], [address] [address] Bethany Vasquez APNP [address] [place] [address] documented as of this encounter Visit Diagnoses Not on filedocumented in this encounter Care Teams Parts Administrator Relationship Specialty Start Date End Date Bethany Vasquez APNP [address] [place] [address] PCP - General NURSE PRACTITIONER 07/30/17 documented as of this encounter
--- OUTSIDE RECORDS SUMMARY | 2025-05-29 13:12 | XMS_ITS | Clinical Summary ---
Author Organization [facility] Address [address] [place] [address] Care Team Providers Care Coffee Break Attendant Name Role Phone Bethany Vasquez NP Primary [...] 07/06/2021 Assessment & Plan (07/06/2021 2:54 PM GREETING CARD WRITER): Risks, benefits and alternatives were discussed. Risks [...] on file Legal Sex Female 7:12 PM GREETING CARD WRITER Gender Identity Not on file Sexual Orientation Not on file Last Filed Vital Signs Vital Sign Reading [...] 157.5 cm (5' 2) 07/18/2014 6:44 PM GREETING CARD WRITER Body Mass Index 36.9 07/18/2014 6:44 PM GREETING CARD WRITER Plan of Treatment Health Maintenance Due Date [...] Zoster Vaccine (1 of 2) 2025 Insurance [employer] Care Teams Coffee Break Attendant Relationship Specialty Start Date End Date Bethany Vasquez NP (Fax) PCP - General Nurse Practitioner 07/02/21
--- OUTSIDE RECORDS SUMMARY | 2025-05-29 13:12 | XMS_ITS | Encounter Summary ---
Author Organization [facility] Address [address] [place] [address] Care Team Providers Care Reel Cart Operator Name Role Phone Bethany Vasquez Primary Care Provider [phone] Encounter Details Date Type Department Care Team (Late Contact Info) Description 09/05/2023 [employer] [facility] [address] [place] [address] [employer], [facility] Provider Proof of name [...] Sex Assigned at Female 07/27/2024 9:39 AM STEAMBOAT PILOT Legal Sex Female 4:49 PM CDT Gender Identity Female 07/27/2024 9:39 AM STEAMBOAT PILOT Sexual Orientation Straight 10/07/2024 1: 56 PM CDT documented as of this encounter Plan of Treatment Upcoming Encounters Date Type Department Care Team (Late Contact Info) Description 06/15/2025 2:30 PM STEAMBOAT PILOT Treatment [facility], [address] [address] Bethany Vasquez APNP [address] [place] [address] 09/08/2025 2:30 PM STEAMBOAT PILOT Treatment [facility] at [facility], [address] [address] Bethany Vasquez APNP [address] [place] [address] documented as of this encounter Visit Diagnoses Not on filedocumented in this encounter Additional Health Concerns Assessment Noted Time PHQ-9 Depression Total Score: 14 023 4:10 PM STEAMBOAT PILOT documented as of this encounter Care Teams Reel Cart Operator Relationship Specialty Start Date End Date Bethany Vasquez APNP [address] [place] [address] PCP - General NURSE PRACTITIONER 07/30/17 documented as of this encounter
--- OUTSIDE RECORDS SUMMARY | 2025-05-29 13:12 | XMS_ITS | Encounter Summary ---
Author Organization [facility] Address [address] [place] [address] Care Team Providers Care Vacuum Drier Tender Name Role Phone Bethany Vasquez Primary Care Provider [phone] Encounter Details Date Type Department Care Team (Late st Contact Info) Description 10/11/2024 [email or web address] Message Enc [facility] Medical Group Family and Sports Medicine - [place] [address] [place] [address] Bethany Vasquez APNP [address] [place] [address] Hemeroid ? Social History Tobacco Use Types [...] Sex Assigned at Female 07/27/2024 9:39 AM STATEMENT DISTRIBUTION CLERK Legal Sex Female 4:49 PM CDT Gender Identity Female 07/27/2024 9:39 AM STATEMENT DISTRIBUTION CLERK Sexual Orientation Straight 10/07/2024 1: 56 PM CDT documented as of this encounter Plan of Treatment Upcoming Encounters Date Type Department Care Team (Late st Contact Info) Description 06/15/2025 2:30 PM STATEMENT DISTRIBUTION CLERK Treatment [facility] at [facility], [address] [address] Bethany Vasquez APNP [address] [place] [address] 09/08/2025 2:30 PM STATEMENT DISTRIBUTION CLERK Treatment [facility] at [facility], [address] [address] Bethany Vasquez APNP [address] [place] [address] documented as of this encounter Visit Diagnoses Not on filedocumented in this encounter Additional Health Concerns Assessment Noted Time PHQ-9 Depression Total Score: 14 023 4:10 PM STATEMENT DISTRIBUTION CLERK documented as of this encounter Care Teams Vacuum Drier Tender Relationship Specialty Start Date End Date Bethany Vasquez APNP [address] [place] [address] PCP - General NURSE PRACTITIONER 07/30/17 documented as of this encounter
--- NOTE | 2025-05-29 14:23 | PC.NURSE ---
Pt. to CT.
[2025-05-29 14:32] LABS: Hematocrit 46.2 % (37.0-47.0); Hemoglobin 15.1 g/dL (12.0-15.0); Immature Granulocyte Percent A 0.3 % (0-0.5); Lymphocytes Absolute Auto 2.82 K/mm3 (0.9-3.2); Mean Corpuscular HGB Conc 32.7 g/dl (32-36); Mean Corpuscular Hemoglobin 29.7 pg (26-34); Mean Corpuscular Volume 90.9 fl (80-100); Nucleated Red Blood Cells Absolute Auto 0.000 K/mm3 (0.0-0.012); Nucleated Red Blood Cells Perc 0.0 % (0.0-0.2); Platelet Count Result 415 k/mm3 (150-375); Red Blood Count 5.08 M/mm3 (4.2-5.4); White Blood Count 9.6 K/mm3 (4.5-10.0)
[2025-05-29 14:44] LABS: Alanine Aminotransferase 13 U/L (6-35); Albumin Level 4.3 g/dL (3.5-5.1); Alkaline Phosphatase 91 U/L (38-126); Anion Gap 7 mmol/L (4-12); Aspartate Amino Transferase 20 U/L (14-36); Bilirubin,Total 0.6 mg/dL (0.2-1.3); Blood Urea Nitrogen 9 mg/dL (7-17); Calcium 9.2 mg/dL (8.4-10.2); Carbon Dioxide 26 mmol/L (22-30); Chloride 104 mmol/L (98-107); Estimated CRCL calculation 74 ml/min; Estimated Glomerular Filt Rate > 60; Glucose 87 mg/dL (65-110); Magnesium 2.3 mg/dL (1.6-2.3); Potassium 4.0 mmol/L (3.4-5.0); Sodium 137 mmol/L (137-145); Total Protein 7.4 g/dL (6.3-8.2)
[2025-05-29] MEDS: LACTATED RINGERS 1,000 ML 999 ML IV CONT (14:47)
[2025-05-29] MEDS: dexAMETHasone SOD PHOS INJ 10 MG/ML 1 ML VIAL IV PUSH (14:48)
[2025-05-29] MEDS: KETOROLAC 30 MG/ML VIAL (*BKC) IV PUSH (14:48)
[2025-05-29] MEDS: PROCHLORPERAZINE EDISYLATE 10 MG/2 ML VIAL IV PUSH (14:48)
--- NOTE | 2025-05-29 14:56 | ED.GENADULT ---
HPI - General Adult General Chief complaint: Headache Stated complaint: migraine x 10 weeks Time Seen by Provider: 05/29/25 13:03 History of Present Illness HPI narrative: 50-year-old female with history of migraine headache presenting to the emergency department for evaluation for persistent migraine headache for the last 10 weeks. Patient has been attempting home medications without significant success. Patient was evaluated emergency department few weeks ago and did feel improved in the emergency department but reports that symptoms worsened again. Patient does complain of symptoms that are similar to her typical migraine but also does report muscular tenderness of the right trapezius. Related Data Home Medications ?Medication ?Instructions ?Recorded ?Confirmed ?Last Taken ?Type black cohosh 540 mg capsule 1,080 mg PO DAILY 04/11/22 04/19/22 04/12/22 History loratadine 10 mg tablet (Claritin) 10 mg PO DAILY 04/11/22 04/11/22 Unknown History red clover leaf extract 500 mg 1,600 mg PO DAILY 04/11/22 04/19/22 04/14/22 History tablet tizanidine 4 mg tablet 8 mg PO BID 04/11/22 04/19/22 04/12/22 History topiramate 50 mg tablet 50 mg PO DAILY 04/11/22 04/19/22 04/12/22 History trazodone 50 mg tablet 50 mg PO HS 04/11/22 04/19/22 04/12/22 History fremanezumab-vfrm 225 mg/1.5 mL 225 mg subcut MONTHLY 04/15/22 04/19/22 04/16/22 History subcutaneous auto-injector (Ajovy) loratadine 10 mg tablet (Claritin) 10 mg PO DAILY 04/19/22 04/19/22 04/12/22 History Allergies Allergy/AdvReac Type Severity Reaction Status Date / Time codeine Allergy Severe Loss of Verified 05/29/25 13:03 Consciousness banana Allergy Intermediate Headache Verified 05/29/25 13:03 diazepam Allergy Intermediate Hives Verified 05/29/25 13:03 milk Allergy Intermediate Headache Verified 05/29/25 13:03 Sulfa (Sulfonamide Allergy Mild Hives / Verified 05/29/25 13:03 Antibiotics) Red Face adhesive tape Allergy Unknown Rash Verified 05/29/25 13:03 BRAXTON PEPPERS Allergy Severe Anaphylaxis Uncoded 07/14/23 20:40 Review of Systems Review of Systems: All systems reviewed & are unremarkable except as noted in HPI and below PMFSH Past Medical History Medical History Obesity Cervical ca Asthma History of migraine Social History Social History Smoking packs per day: 1 Smoking cigarettes per day: 20.0 Years smoked: 34 Smoking pack-years: 34.00 Tobacco type: cigarettes Second hand tobacco smoke exposure: No Alcohol use details: SPECIAL OCCASIONS Substance use: never Substance use type: does not use Living arrangements: with family Spiritual care concerns: No Exam Narrative: APPEARANCE: Well appearing, no pain, no distress, well-nourished. HEAD: normocephalic, atraumatic. EYES: PERRLA/EOMI, conjunctivae clear. NOSE: Normal no drainage EARS:TMS clear with good light reflex. THROAT: Pharynx clear, no exudate. NECK: Supple. No adenopathy, no masses. RESPIRATORY: Airway patent, respirations nonlabored. Clear to auscultation bilaterally, no rales, rhonchi, wheezing. CARDIOVASCULAR: Regular rate and rhythm without murmurs rubs or gallops. ABDOMINAL: Soft, nontender, nondistended, normal bowel sounds MUSCULOSKELETAL: Tenderness of right trapezius into cervical portion of trapezium NEURO: Alert. Cranial nerves II through XII intact. Good gait. Good coordination SKIN: Warm, dry. Normal Color Course Vital Signs Vital signs: Vital Signs Temperature 98.2 F 05/29/25 12:58 Pulse Rate 96 05/29/25 12:58 Respiratory Rate 18 05/29/25 12:58 Blood Pressure 117/85 05/29/25 12:58 Pulse Oximetry 95 05/29/25 12:58 Oxygen Delivery Room Air 05/29/25 12:58 Temperature 98.2 F 05/29/25 12:58 Pulse Rate 69 05/29/25 16:15 Respiratory Rate 16 05/29/25 16:15 Blood Pressure 125/73 05/29/25 16:15 Pulse Oximetry 96 05/29/25 16:15 Oxygen Delivery Room Air 05/29/25 12:58 Medical Decision Making MDM Narrative Medical decision making narrative: 50-year-old female presenting to the emergency department for evaluation for present migraine symptoms. Patient also does have associated muscle spasm associated with the right trapezius into the cervical aspect of the trapezius. Patient did feel improved with treatment. Patient will also be provided additional Flexeril for muscle spasm control for home. Patient was encouraged of close follow-up with her primary care physician. All questions concerns were addressed. Differential Diagnosis Differential Diagnosis: Migraine, dehydration, muscular strain Vital Signs Vital Signs: Vital Signs Temperature 98.2 F 05/29/25 12:58 Pulse Rate 96 05/29/25 12:58 Respiratory Rate 18 05/29/25 12:58 Blood Pressure 117/85 05/29/25 12:58 Pulse Oximetry 95 05/29/25 12:58 Oxygen Delivery Room Air 05/29/25 12:58 Temperature 98.2 F 05/29/25 12:58 Pulse Rate 69 05/29/25 16:15 Respiratory Rate 16 05/29/25 16:15 Blood Pressure 125/73 05/29/25 16:15 Pulse Oximetry 96 05/29/25 16:15 Oxygen Delivery Room Air 05/29/25 12:58 Lab Data 05/29/25 14:21 05/29/25 14:21 Labs: Lab Results 05/29/25 Range/Units 14:21 WBC 9.6 (4.5-10.0) K/mm3 RBC 5.08 (4.2-5.4) M/mm3 Hgb 15.1 H (12.0-15.0) g/dL Hct 46.2 (37.0-47.0) % MCV 90.9 (80-100) fl MCH 29.7 (26-34) pg MCHC 32.7 (32-36) g/dl RDW 13.2 (11.5-14.5) % Plt Count 415 H (150-375) k/mm3 MPV 9.3 (7.4-10.4) fl Immature Gran % (Auto) 0.3 (0-0.5) % Neut % (Auto) 58.2 (45.5-73.1) % Lymph % (Auto) 29.4 (18.3-44.2) % [place] % (Auto) 8.8 H (2.6-8.5) % Eos % (Auto) 2.3 (0-4.4) % Baso % (Auto) 1.0 (0.2-1.2) % Lymph # (Auto) 2.82 (0.9-3.2) K/mm3 [place] # (Auto) 0.8 H (0.1-0.6) K/mm3 Eos # (Auto) 0.2 (0-0.3) K/mm3 Baso # (Auto) 0.1 (0.0-0.1) K/mm3 Abs Immat Gran (auto) 0.03 (0.00-0.031) K/mm3 Absolute Neuts (auto) 5.6 (1.3-6.7) K/mm3 Absolute Nucleated RBC 0.000 (0.0-0.012) K/mm3 Nucleated RBC % 0.0 (0.0-0.2) % Sodium 137 (137-145) mmol/L Potassium 4.0 (3.4-5.0) mmol/L Chloride 104 (98-107) mmol/L Carbon Dioxide 26 (22-30) mmol/L Anion Gap 7 (4-12) mmol/L BUN 9 (7-17) mg/dL Creatinine 0.77 (0.7-1.0) mg/dL Estim Creat Clear Calc 74 ml/min Estimated GFR > 60 (59 - ) Glucose 87 (65-110) mg/dL Calcium 9.2 (8.4-10.2) mg/dL Magnesium 2.3 (1.6-2.3) mg/dL Total Bilirubin 0.6 (0.2-1.3) mg/dL AST 20 (14-36) U/L ALT 13 (6-35) U/L Alkaline Phosphatase 91 (38-126) U/L Total Protein 7.4 (6.3-8.2) g/dL Albumin 4.3 (3.5-5.1) g/dL Discharge Plan Discharge Clinical Impression: Strain of cervical portion of right trapezius muscle, Cervical radiculopathy, Headache Patient Disposition: Home Condition: Stable Instructions: Antibiotic Form Additional Instructions: Tylenol and ibuprofen for pain control. Flexeril for muscle spasm. Have close follow-up with her primary care physician for additional outpatient testing. If you have any worsening symptoms please call or return to the emergency department. Patient Language: Mauritanian Prescriptions: New cyclobenzaprine 10 mg tablet 10 mg PO BID PRN (Reason: muscle spasm) Qty: 14 0RF No Action trazodone 50 mg tablet 50 mg PO HS tizanidine 4 mg tablet 8 mg PO BID black cohosh 540 mg Capsule 1,080 mg PO DAILY Rx Instructions: HOT FLASHES red clover leaf extract 500 mg Tablet 1,600 mg PO DAILY topiramate 50 mg tablet 50 mg PO DAILY loratadine [Claritin] 10 mg Tablet 10 mg PO DAILY Ajovy Autoinjector 225 mg/1.5 mL auto-injector 225 mg SUBCUT MONTHLY Rx Instructions: TAKING 04/15/22 migraine preventative loratadine [Claritin] 10 mg Tablet 10 mg PO DAILY meperidine 50 mg tablet 50 mg PO Q6H PRN (Reason: pain) Qty: 20 0RF ondansetron 4 mg tablet,disintegrating 4 mg PO Q8H PRN (Reason: nausea and vomiting) Qty: 15 0RF methylprednisolone [Medrol (Sesar)] 4 mg tablets,dose pack See Rx Instructions PO .COMPLEX Qty: 21 0RF Rx Instructions: orally per package directions methocarbamol 1,000 mg tablet 1,000 mg PO TID Qty: 15 0RF Follow-up/Referrals: Pedro,Bethany Valentin NP [Primary Care Provider, Unknown]
[2025-05-29 16:15] VITALS: BP 125/73; PULSE 69; RESP 16; O2SAT 96
--- NOTE | 2025-05-29 16:15 | PC.NURSE ---
Pt. reports 0/10 head pain without movement and 2/10 head pain with movement. No nausea. Dr. Villa updated.
== END 2025-05-29 16:36 | disposition home or self-care (01) ==
PROVIDERS: Emergency Provider Emergency Medicine; PCP Nurse Practitioner
DX: S16.1XXA Strain of muscle, fascia and tendon at neck level, initial encounter (principal); M54.12 Radiculopathy, cervical region; R51.9 Headache, unspecified; E66.9 Obesity, unspecified; Z68.32 Body mass index [BMI] 32.0-32.9, adult; J45.909 Unspecified asthma, uncomplicated; F17.210 Nicotine dependence, cigarettes, uncomplicated; Z85.41 Personal history of malignant neoplasm of cervix uteri; Z79.899 Other long term (current) drug therapy; X58.XXXA Exposure to other specified factors, initial encounter
CPT/HCPCS: 36415; 70450; 80053; 83735; 85025; 96361; 96374; 96375; 99284; J0780; J1100; J1200; J1885; J7120